=== PATIENT | female | born 1950 | race Caucasian/White ===

== ENCOUNTER → 2017-12-08 09:30 | Outpatient (CLI) | payer MEDICARE, OTHER, SELFPAY ==
--- NOTE | 2017-12-08 | DI.MG.S_ITS ---
BILATERAL DIGITAL SCREENING MAMMOGRAM 3D/2D WITH CAD: 12/08/2017 CLINICAL: Routine screening. Comparison is made to exams dated: 10/15/2016 mammogram, 04/23/2015 mammogram, and 12/21/2013 mammogram - [facility]. The tissue of both breasts is heterogeneously dense. This may lower the sensitivity of mammography. Current study was also evaluated with a Computer Aided Detection (CAD) system. There is architectural distortion in the right breast at 1 o'clock anterior depth. No other significant masses, calcifications, or other findings are seen in either breast. IMPRESSION: INCOMPLETE: NEEDS ADDITIONAL IMAGING EVALUATION The architectural distortion in the right breast is indeterminate. Additional views with possible ultrasound are recommended. This exam was interpreted at Station ID: [id number]. NOTE: For mammograms, a report in lay terms will be sent to the patient. Approximately 15% of breast malignancies will not be visualized mammographically. In the management of a palpable breast mass, a negative mammogram must not discourage biopsy of a clinically suspicious lesion. Electronically Signed By: Warren quintana/yovani:12/08/2017 11:00:32 letter sent: Additional Imaging Needed ACR BI-RADS Category 0: Incomplete [id number]
== END ==
PROVIDERS: PCP Internal Medicine; Visit Provider Internal Medicine
DX: Z12.31 Encounter for screening mammogram for malignant neoplasm of breast (principal)
CPT/HCPCS: 77063; 77067

== ENCOUNTER → 2017-12-26 09:27 | Outpatient (CLI) | payer MEDICARE, OTHER, SELFPAY ==
--- NOTE | 2017-12-26 09:31 | DI.US.S_ITS ---
ULTRASOUND OF RIGHT BREAST AND RIGHT AXILLA: 12/26/2017 CLINICAL: Patient returns today to evaluate an architectural distortion in the right breast. Comparison is made to exams dated: 12/26/2017 mammogram, 12/08/2017 mammogram, 10/15/2016 mammogram, 04/23/2015 mammogram, and 12/21/2013 mammogram - [facility]. Color flow and real-time ultrasound of the right breast and axilla were performed on the areas of interest. There is a 0.9 cm x 0.7 cm x 0.4 cm round mass with an indistinct margin in the right breast at 1 o'clock posterior depth. This round mass is hypoechoic but of mixed echogenicity. Color flow imaging demonstrates that there is no vascularity present. No abnormalities were seen sonographically in the right axilla. IMPRESSION: SUSPICIOUS OF MALIGNANCY - FOLLOW-UP RECOMMENDED The 0.9 cm x 0.7 cm x 0.4 cm round mass in the right breast is at an intermediate suspicion for malignancy. An ultrasound guided biopsy is recommended. The findings were discussed with the patient at the conclusion of the study by Dr. Joyner. Correlation is recommended on post-biopsy mammogram to determine whether this correlates with the architectural distortion see on mammogram. This exam was interpreted at Station ID: [id number]. Electronically Signed By: Bry gregory/:12/26/2017 16:04:03 letter sent: Biopsy Required Ultrasound BI-RADS: 4b Suspicious abnormality - intermediate suspicion of malignancy
--- NOTE | 2017-12-26 09:31 | DI.MG.S_ITS ---
UNILATERAL RIGHT DIGITAL DIAGNOSTIC MAMMOGRAM 3D/2D WITH ADDITIONAL VIEWS: 12/26/2017 CLINICAL: Additional evaluation requested from prior study. Comparison is made to exams dated: 12/08/2017 mammogram, 10/15/2016 mammogram, and 04/23/2015 mammogram - [facility]. The tissue of the right breast is heterogeneously dense. This may lower the sensitivity of mammography. There is irregular low density architectural distortion with an indistinct margin in the right breast at 1 o'clock anterior depth. No other significant masses or calcifications are seen in the breast. IMPRESSION: INCOMPLETE: NEEDS ADDITIONAL IMAGING EVALUATION The irregular low density architectural distortion in the right breast is indeterminate. An ultrasound is recommended. This exam was interpreted at Station ID: [id number]. NOTE: For mammograms, a report in lay terms will be sent to the patient. Approximately 15% of breast malignancies will not be visualized mammographically. In the management of a palpable breast mass, a negative mammogram must not discourage biopsy of a clinically suspicious lesion. Electronically Signed By: Bry gregory/yovani:12/26/2017 10:16:52 letter sent: Need Ultrasound ACR BI-RADS Category 0: Incomplete 3340F
== END ==
PROVIDERS: PCP Internal Medicine; Visit Provider Internal Medicine
DX: N63.12 Unspecified lump in the right breast, upper inner quadrant (principal)
CPT/HCPCS: 76642; 77065; G0279

== ENCOUNTER → 2018-01-06 09:10 | Outpatient (CLI) | payer MEDICARE, OTHER, SELFPAY ==
--- NOTE | 2018-01-06 | DI.MG.S_ITS ---
UNILATERAL RIGHT DIAGNOSTIC MAMMOGRAM POST-NEEDLE BIOPSY: 01/06/2018 CLINICAL: Right breast mass. Post clip placement. Comparison is made to exams dated: 01/06/2018 ultrasound biopsy, 12/26/2017 mammogram, and 12/08/2017 mammogram - [facility]. Current study contains 2 films. The tissue of the right breast is heterogeneously dense. This may lower the sensitivity of mammography. There is a marker clip in the appropriate position in the right breast at 1 o'clock middle depth. This marker clip placement is at biopsy site. IMPRESSION: POST PROCEDURE MAMMOGRAM FOR MARKER PLACEMENT There was a successful marker clip placement in the right breast middle depth. However, the biopsy site is separate from the subtle architectural distortion on mammography, seen on only the CC view. As such, pathology results would be expected to be discordant. Given that the mammographic finding is only seen on the CC projection, stereotactic biopsy may not be feasible. As such, breast MRI is recommended for further evaluation, once pathology results come back. Recommendations were discussed with the patient at the conclusion of the biopsy procedure. This exam was interpreted at Station ID: [id number]. NOTE: For mammograms, a report in lay terms will be sent to the patient. Approximately 15% of breast malignancies will not be visualized mammographically. In the management of a palpable breast mass, a negative mammogram must not discourage biopsy of a clinically suspicious lesion. Electronically Signed By: Chaparro patel/:01/06/2018 10:51:32 ACR BI-RADS Category Post-procedure mammogram for marker placement
--- NOTE | 2018-01-06 | PATH_ITS ---
[facility] Accession Number: [id number] . 01 Material submitted: . RT BREAST MASS . 01 Clinical history: . A: 1:30 10CM FROM NIPPLE . 02 Diagnosis: Needle Core Biopsy, Right Breast, 1:30, 10 cm from the Nipple: Benign breast tissue with hyalinized stroma, negative for atypia and malignancy (see microscopic description). MRV/01/12/2018 . 02 Electronically signed: . Nathan Cristobal MD, Pathologist NPI- [id number] . 01 Gross description: . One specimen is received in formalin labeled [place], Karen and US BX breast perk with vac device, and consists of multiple irregular wilks-yellow fragments of fibrofatty tissue admixed with blood clot, 2.0 x 0.5 x 0.2 cm in aggregate. The specimen is submitted in toto in cassettes A1 and A2. Formalin fixation exceeds requirements. (GERMAIN:[id number]) /[facility] . 02 Microscopic: . Sections are of a needle core biopsy stated to be from a mass in the right breast. The tissue is totally benign. The breast stroma is extremely dense and hyalinized, and there are scattered benign ducts and lobules. The interface between the dense hyalinized stroma and the adjacent adipose tissue is quite distinct and this could well explain a mass on mammography and/or a palpable breast mass. There is no atypia or evidence for malignancy. . 02 Pathologist provided ICD-10: R92.8 . 02 CPT . 161333 Performed at: 01 [facility] [address] [place] [address] [address] [facility], [place], [place] [id number] MD Bry Levin MD Phone: [phone] Performed at: 02 [facility] [place] [address] [place] [id number] MD Sampson Hampton MD Phone: [phone]
--- NOTE | 2018-01-06 09:12 | DI.US.S_ITS ---
ULTRASOUND GUIDED BIOPSY RIGHT BREAST USING VACUUM DEVICE WITH MARKING DEVICE INSERTED AND POST DIGITAL MAMMOGRAPHIC AND ULTRASOUND IMAGIN01/06/2018 CLINICAL: Right breast mass. PATIENT CONSENT: Risks (minor bleeding, infection, vasovagal reaction and repeat procedure), benefits and alternatives were explained to the patient and written informed consent was obtained. Correlation is made to exams dated: 12/26/2017 ultrasound, 12/26/2017 mammogram, and 12/08/2017 mammogram - [facility]. An ultrasound guided biopsy using real-time ultrasound was performed for the concerning 9 mm oval mass located in the right breast at 1 o'clock middle depth 10 cm from the nipple. This was described on the previous mammography and ultrasound reports. The skin was prepped in the usual manner. Local anesthetic was administered to the access site. A small incision was made in the breast. The abnormality was approached from the lateral aspect. A 13 gauge biopsy needle was placed adjacent to the abnormality under ultrasound guidance. Once the needle was documented to be in the correct location, four specimens were obtained using the Mammotome biopsy system. The patient received additional local anesthetic during the procedure. A permanently visible titanium clip cool the biopsy site. A skin adhesive, a skin closure strip, and a sterile dressing were applied to the access site. Post procedure digital mammographic and ultrasound imaging demonstrates the clip to be superomedial to the biopsy site. The specimens were sent to the laboratory for pathological analysis. IMPRESSION: ULTRASOUND GUIDED BIOPSY BENIGN Ultrasound guided biopsy of the 9 mm mass in the right breast at 1 o'clock middle depth 10 cm from the nipple was successful. Pathology indicates benign breast tissue with dense hyalinization. Findings and post biopsy marker location are discordant with the originally questioned mammographic finding. Recommend a bilateral breast MRI with and without contrast for further evaluation. This exam was interpreted at Station ID: [id number]. Chaparro patel,cj/:01/13/2018 16:41:40
== END ==
PROVIDERS: PCP Internal Medicine; Visit Provider Family Medicine
DX: R92.8 Other abnormal and inconclusive findings on diagnostic imaging of breast (principal); N63.0 Unspecified lump in unspecified breast
CPT/HCPCS: 19083; 77065; 88305

== ENCOUNTER → 2018-01-27 08:49 | Outpatient (CLI) | payer MEDICARE, OTHER, SELFPAY ==
[2018-01-27 09:37] LABS: Estimated Glomerular Filt Rate 55.1 mL/min (>60)
== END ==
PROVIDERS: PCP Internal Medicine; Visit Provider Internal Medicine
DX: Z01.812 Encounter for preprocedural laboratory examination (principal)
CPT/HCPCS: 36415; 82565

== ENCOUNTER → 2018-02-01 09:35 | Outpatient (CLI) | payer MEDICARE, OTHER, SELFPAY ==
--- NOTE | 2018-02-01 09:38 | DI.MRI.S_ITS ---
BREAST MRI OF BOTH BREASTS : 02/01/2018 CLINICAL: Right breast clip placement. Comparison is made to exams dated: 01/06/2018 mammogram, 01/06/2018 ultrasound biopsy, and 12/26/2017 [facility]. Informed consent was obtained from the patient. Axial T1, T2, and pre and post contrast T1 images were obtained. Prior mammographic finding is no longer seen right breast. This is consistent with overlapping fibroglandular tissue. There is no abnormal enhancement, masses, or areas of distortion. IMPRESSION: NEGATIVE There is no MRI evidence of malignancy. A 1 year screening mammogram is recommended. This exam was interpreted at Station ID: [id number]. Electronically Signed By: Warren Goodrich M.D. cj/:02/03/2018 07:40:38 Entry: - 02/03/2018 07:40:38 ACR BI-RADS Category 1: Negative [id number]
== END ==
PROVIDERS: PCP Internal Medicine; Visit Provider Internal Medicine
DX: R92.8 Other abnormal and inconclusive findings on diagnostic imaging of breast (principal)
CPT/HCPCS: A9579; C8908

== ENCOUNTER 2018-03-14 15:13 | Emergency (ER) | payer MEDICARE, OTHER, SELFPAY ==
[2018-03-14 15:28] VITALS: BP 139/70; PULSE 56; RESP 14; TEMP 37.2; O2SAT 97; BMI 25.1
[2018-03-14 17:11] VITALS: BP 147/68; PULSE 48; TEMP 37.1; O2SAT 98
--- NOTE | 2018-03-14 18:12 | PC.NURSE ---
pt reports sudden onset dizziness last night at approx 0030 while getting into bed. Reports worse when supine, resolved this AM however reports still feels mildly lightheaded. Denies nausea/vomiting/fever/trauma/cp/soa/dysuria or other sx, amb ind with steady gait.
[2018-03-14 18:37] LABS: Add Manual Diff / Slide Review NO; Basophils Percent Auto 0.6 % (0-2); Eosinophils Percent Auto 2.7 % (2-4); Hematocrit 44.4 % (36-46); Hemoglobin 14.9 g/dL (12.0-16.0); Lymphocytes Percent Auto 33.6 % (25-40); Mean Corpuscular HGB Conc 33.5 % (30-36); Mean Corpuscular Volume 98.5 fL (80-100); Monocytes Percent Auto 7.9 % (3-14); Neutrophils Absolute Auto 4800 /uL (3000-5900); Neutrophils Percent Auto 55.2 % (50-75); Platelet Count 274 X10^3/uL (150-400); Red Blood Cell Count 4.51 X10^6/uL (4.0-5.2); Red Cell Distribution Width 14.5 % (11.6-14.8); White Blood Cell Count 8.7 X10^3/uL (4.5-11.0)
[2018-03-14 18:48] LABS: Alanine Aminotransferase 31 IU/L (9-52); Albumin 4.7 g/dL (3.5-5.0); Albumin Globulin Ratio 1.5 (1.0-2.8); Alkaline Phosphatase 72 U/L (38-126); Aspartate Aminotransferase 29 IU/L (14-36); BUN Creatinine Ratio 17.8 (6-22); Bilirubin Total 0.5 mg/dL (0.2-1.3); Blood Urea Nitrogen 16 mg/dL (7-17); Calcium 9.6 mg/dL (8.4-10.2); Carbon Dioxide 27 mmol/L (22-32); Chloride 105 mmol/L (98-107); Estimated Glomerular Filt Rate > 60.0 mL/min (>60); Globulin 3.1 g/dL (1.7-4.1); Glucose 110 mg/dL (80-110); HEMOLYSIS < 15 (0-50); Potassium 4.3 mmol/L (3.4-5.1); Sodium 142 mmol/L (137-145); Total Protein 7.8 g/dL (6.3-8.2)
[2018-03-14 18:53] LABS: Bacteria Urine None Seen
--- NOTE | 2018-03-14 18:53 | DI.CT.S_ITS ---
PROCEDURE: CT HEAD/BRAIN WO CON INDICATIONS: dizziness, visual change last night TECHNIQUE: Noncontrast 4.5 mm thick angled axial sections acquired from the foramen magnum to the vertex, with coronal and sagittal reformats. For radiation dose reduction, the following was used: automated exposure control, adjustment of mA and/or kV according to patient size. COMPARISON: None. FINDINGS: Image quality: Excellent. CSF spaces: Basal cisterns are patent. No extra-axial fluid collections. The ventricles are symmetric in size and shape. Brain: No intracranial bleeds or masses. There is mild cerebral volume loss for age, with resultant ventricular and sulcal prominence. There are mild periventricular and deep white matter chronic small vessel ischemic changes. There is intracranial internal carotid artery atherosclerosis. Skull and face: Calvarium and visualized facial bones appear intact, without suspicious lesions. Sinuses: Visualized sinuses and mastoids are clear. IMPRESSION: 1. No acute intracranial abnormalities. 2. Cerebral volume loss and chronic microvascular ischemic changes. Dictated by: Sunny Campbell M.D. on 03/14/2018 at 19:41 Approved by: Sunny Campbell M.D. on 03/14/2018 at 19:44
[2018-03-14 18:54] LABS: Appearance Urine UA CLEAR; Bilirubin Urine UA NEGATIVE (NEGATIVE); Color Urine UA YELLOW; Glucose Urine UA NEGATIVE (Normal); Ketones Urine UA NEGATIVE (NEGATIVE); Leukocyte Esterase Urine UA NEGATIVE (NEGATIVE); Nitrite Urine UA Negative (Negative); Occult Blood Urine UA TRACE-LYSED (Negative); Protein Urine UA NEGATIVE (Negative); Urobilinogen Urine UA 0.2 E.U./dL (0.2)
--- NOTE | 2018-03-14 18:54 | ED.DIZZY ---
HPI - Dizziness General Chief Complaint: Dizziness Stated Complaint: DIZZINESS Time Seen by Provider: 03/14/18 18:08 Source: patient Mode of arrival: ambulatory Limitations: no limitations History of Present Illness HPI Narrative: Patient states she had an episode of dizziness last night in the middle of the night after falling asleep in bed while watching TV. She states she awoke and everything appeared wavy. Patient noticed that she had a lightheaded and swirling feeling. Patient states that she fell back asleep, and when she woke up, she felt better, but still had some degree of dizziness. She states she had several episodes of diarrhea this morning and an episode of chills. However, patient states she had a hot dog for lunch and tolerated this well. Patient states that now she is feeling mostly back to normal. MD complaint: dizziness Onset (ago): unknown Timing: awoke with symptoms Description: sense of movement History of similar episodes: No History of trauma: No Severity: mild Relieving factors: sleep (Incomplete resolution.) Exacerbating factors: nothing Associated symptoms: chills and other (Patient denies nausea or vomiting. No chest pain or shortness of breath. No diaphoresis or fever. No syncope.) Related Data Home Medications Medication Instructions Recorded Confirmed cholecalciferol (vitamin D3) 1,000 1,000 unit PO DAILY 02/06/18 03/14/18 unit capsule Allergies Allergy/AdvReac Type Severity Reaction Status Date / Time codeine [CODEINE] AdvReac Unknown Extreme Verified 03/14/18 15:28 nausea oxycodone [OXYCODONE] AdvReac Unknown Extreme Verified 03/14/18 15:28 nausea Review of Systems Review of Systems All systems reviewed & are unremarkable except as noted in HPI and below Constitutional Reports chills ( Single episode.), Denies fever(s), Denies lethargy and Denies weakness Eyes Denies change in vision, Denies eye discharge, Denies irritation and Denies loss of vision ENT Ears, Nose, Mouth, and Throat: Denies change in voice, Denies neck pain and Denies sore throat Cardiovascular Denies chest pain, Denies irregular heart rhythm, Reports lightheadedness, Denies palpitations, Denies dyspnea, Denies dyspnea on exertion and Denies orthopnea Respiratory Denies cough, Denies dyspnea, Denies dyspnea on exertion and Denies wheezing Gastrointestinal Gastrointestinal: Denies abdominal pain, Denies change in bowel habits, Reports diarrhea, Denies nausea and Denies vomiting Genitourinary Denies hematuria, Denies flank pain, Denies urinary incontinence and Denies urinary urgency Musculoskeletal Denies neck pain Integumentary/Breasts Denies pruritus, Denies erythema, Denies rash and Denies wounds Neurologic Denies confusion, Denies loss of vision and Denies weakness Psychiatric Denies anxiety, Denies confusion, Denies depression, Denies homicidal ideation and Denies suicidal ideation Endocrine Denies palpitations Hematologic/Lymphatic Denies easy bruising Allergic/Immunologic Denies wheezing FORMERLY [facility], 1928–1983 Medical History Chicken pox (Resolved ~1949) Herpes (Resolved ~1979) Surgical History Anesthesia (Resolved) Fractures (Resolved ~2016) Family History Father High cholesterol Stroke Mother Stroke Social History Smoking Status: Former smoker Exam Initial Vital Signs Initial Vital Signs: Vital Signs Temperature 99.0 F 03/14/18 15:28 Pulse Rate 56 L 03/14/18 15:28 Respiratory Rate 14 03/14/18 15:28 Blood Pressure 139/70 03/14/18 15:28 Pulse Oximetry 97 03/14/18 15:28 Const General: cooperative and well developed Nutritional Appearance: well nourished Orientation: alert, awake, oriented x3 and not confused [facility] Head: normocephalic and atraumatic Ears: external ears normal and TM's normal bilaterally Nose: external nose normal and No nasal discharge Face and sinus: No dry mucous membranes Eyes General: appearance normal, both eyes and all related structures Eyelids: eyelids normal Conjunctivae: conjunctivae normal Sclera: sclerae normal Pupils: PERRL EOM: EOM intact bilaterally Neck Neck: normal visual inspection, trachea midline, No lymphadenopathy, No midline deformity and No JVD Lymphatic: No lymphedema Chest Chest: normal inspection of the chest Resp Effort & Inspection: normal respiratory effort, able to speak in complete sentences, no respiratory distress and no use of accessory muscles Auscultation: clear to auscultation bilaterally, no rales, no rhonchi and no wheezes Cardio Rate: regular rate Rhythm: regular rhythm Heart Sounds: no click, no gallops, no murmurs and no rubs Pulses: normal peripheral pulses GI Inspection: non-distended Palpation: soft, no hepatosplenomegaly, No guarding, No pulsatile mass and No tender Auscultation: normal bowel sounds Back/Spine/Pelvis Back: No CVA tenderness Cervical Spine: cervical ROM normal and No pain with cervical ROM Thoracic/Lumbar Spine: thoracic and lumbar spine normal to inspection Skin General: no rashes or lesions noted, No jaundice and No petechiae Neuro General: alert, oriented x3, gait normal and no focal motor deficits Speech: speech normal Extrem General: full ROM, no clubbing, cyanosis or edema, no pedal edema and no calf tenderness Psych Appearance: well kempt Mental Status: mental status grossly normal Attitude: cooperative Thought Content: normal and suicidality Judgment: judgment good Course Hospital Course: Patient's symptoms had largely resolved at the time of her Emergency Department visit; however due to her age, she was worked up with labs, UA, EKG and CT scan of the head. These were all unremarkable. I did not find evidence of an emergent condition causing the patient's symptoms. We did discuss the need for follow-up and the usual indications for return. Orders Ordered: ED Orders 03/14/18 18:28 Complete Blood Count AUTO DIFF Stat Comprehensive Metabolic Panel Stat 03/14/18 18:30 Urinalysis and Microscopic Stat 03/14/18 18:53 CT head/brain wo con Stat Vital Signs - 8 hr 03/14/18 15:28 03/14/18 17:11 Temperature 99.0 F 98.8 F Pulse Rate 56 L 48 L Respiratory Rate 14 Blood Pressure 139/70 Blood Pressure [Left Arm] 147/68 H Pulse Oximetry 97 98 MDM - Dizziness Medical Records Attestation: I reviewed the patient's medical records. Lab Data Attestation: I reviewed the patient's lab results. Result diagrams: 03/14/18 18:28 03/14/18 18:28 Lab Results 03/14/18 03/14/18 03/14/18 Range/Units 18:28 18:28 18:28 WBC 8.7 (4.5-11.0) X10^3/uL RBC 4.51 (4.0-5.2) X10^6/uL Hgb 14.9 (12.0-16.0) g/dL Hct 44.4 (36-46) % MCV 98.5 (80-100) fL MCH 33.0 (26-34) PG MCHC 33.5 (30-36) % RDW 14.5 (11.6-14.8) % Plt Count 274 (150-400) X10^3/uL Neut % (Auto) 55.2 (50-75) % Lymph % (Auto) 33.6 (25-40) % Saunders % (Auto) 7.9 (3-14) % Eos % (Auto) 2.7 (2-4) % Baso % (Auto) 0.6 (0-2) % Neut # (Auto) 4800 (0890-8757) /uL Sodium 142 (137-145) mmol/L Potassium 4.3 (3.4-5.1) mmol/L Chloride 105 (98-107) mmol/L Carbon Dioxide 27 (22-32) mmol/L BUN 16 (7-17) mg/dL Creatinine 0.90 (0.52-1.04) mg/dL Estimated GFR > 60.0 (>60) mL/min BUN/Creatinine Ratio 17.8 (6-22) Glucose 110 (80-110) mg/dL Calcium 9.6 (8.4-10.2) mg/dL Total Bilirubin 0.5 (0.2-1.3) mg/dL AST 29 (14-36) IU/L ALT 31 (9-52) IU/L Alkaline Phosphatase 72 (38-126) U/L Total Protein 7.8 (6.3-8.2) g/dL Albumin 4.7 (3.5-5.0) g/dL Globulin 3.1 (1.7-4.1) g/dL Albumin/Globulin Ratio 1.5 (1.0-2.8) TSH 1.96 (0.47-4.68) uIU/mL Urine Color Urine Appearance Urine pH (4.5-8.0) Ur Specific [place] (1.000-1.035) Urine Protein (Negative) Urine Glucose (UA) (Normal) g/dL Urine Ketones (NEGATIVE) Urine Occult Blood (Negative) Urine Nitrate (Negative) Urine Bilirubin (NEGATIVE) Urine Urobilinogen (0.2) E.U./dL Ur Leukocyte Esterase (NEGATIVE) Urine RBC (0-5/HPF) Urine WBC (0-5/HPF) Ur Squamous Epith Cells Urine Bacteria (None) Ur Culture Indicated? Micro UA Comment 03/14/18 Range/Units 18:30 WBC (4.5-11.0) X10^3/uL RBC (4.0-5.2) X10^6/uL Hgb (12.0-16.0) g/dL Hct (36-46) % MCV (80-100) fL MCH (26-34) PG MCHC (30-36) % RDW (11.6-14.8) % Plt Count (150-400) X10^3/uL Neut % (Auto) (50-75) % Lymph % (Auto) (25-40) % Saunders % (Auto) (3-14) % Eos % (Auto) (2-4) % Baso % (Auto) (0-2) % Neut # (Auto) (7946-1894) /uL Sodium (137-145) mmol/L Potassium (3.4-5.1) mmol/L Chloride (98-107) mmol/L Carbon Dioxide (22-32) mmol/L BUN (7-17) mg/dL Creatinine (0.52-1.04) mg/dL Estimated GFR (>60) mL/min BUN/Creatinine Ratio (6-22) Glucose (80-110) mg/dL Calcium (8.4-10.2) mg/dL Total Bilirubin (0.2-1.3) mg/dL AST (14-36) IU/L ALT (9-52) IU/L Alkaline Phosphatase (38-126) U/L Total Protein (6.3-8.2) g/dL Albumin (3.5-5.0) g/dL Globulin (1.7-4.1) g/dL Albumin/Globulin Ratio (1.0-2.8) TSH (0.47-4.68) uIU/mL Urine Color Yellow Urine Appearance Clear Urine pH 5.0 (4.5-8.0) Ur Specific [place] 1.020 (1.000-1.035) Urine Protein Negative (Negative) Urine Glucose (UA) Negative (Normal) g/dL Urine Ketones Negative (NEGATIVE) Urine Occult Blood Trace-lysed (Negative) Urine Nitrate Negative (Negative) Urine Bilirubin Negative (NEGATIVE) Urine Urobilinogen 0.2 (0.2) E.U./dL Ur Leukocyte Esterase Negative (NEGATIVE) Urine RBC 0-1/hpf (0-5/HPF) Urine WBC 0-1/hpf (0-5/HPF) Ur Squamous Epith Cells 0-1 /hpf Urine Bacteria None seen (None) Ur Culture Indicated? Cult not indicated Micro UA Comment Not Reportable ECG Data Attestation: I personally reviewed and interpreted this ECG as follows: Interpretation: Twelve lead EKG performed on March 14, 2018 at 3:32 p.m.. Irregular ventricular rhythm with a rate of 57 beats per minute MS interval 126 millisecond QRS duration 98 milliseconds QTC interval 394 milliseconds Normal axis Interpretation: Sinus bradycardia, no STEMI; borderline EKG MDM Narrative Medical decision making narrative: Patient was worked up with consideration of electrolyte abnormality, cerebral vascular event, cardiac dysrhythmia, viral syndrome, and other possible etiologies in mind. Discharge Plan Departure Patient Disposition: Home Clinical Impression: Dizziness, Diarrhea Discharge Date/Time: 03/14/18 19:33 Interventions: ED Discharge Assessment Last Done: 03/14/18 19:29 Instructions: DI for Diarrhea and Traveler's Diarrhea -- Adult, DI for Dizziness-Nonvertigo Activity Restrictions/Additional Instructions: Your labs and CT scan looked good. There is no evidence of a serious cause of your symptoms at this time. Most likely, the diarrhea and dizziness are related. However, if your diarrhea has completely resolved and your sense of dizziness is not improved in the next few days, you should see your primary care physician for further evaluation. Prescriptions: No Action cholecalciferol (vitamin D3) 1,000 unit capsule 1,000 unit PO DAILY RF: 0 Referrals: Marlee Stinson ARNP [Primary Care Provider] - ( Please follow up with your primary doctor in the next 3 days if you're not feeling better.)
[2018-03-14 19:10] LABS: Culture Indicated Urine Cult Not Indicated; RBC Urine 0-1/HPF (0-5/HPF); Squamous Epithelial Cell Urine 0-1 /HPF; WBC Urine 0-1/HPF (0-5/HPF)
[2018-03-14 19:29] VITALS: BP 121/62; PULSE 55; RESP 16; O2SAT 98
[2018-03-14 20:20] LABS: Thyroid Stimulating Hormone 1.96 uIU/mL (0.47-4.68)
== END 2018-03-14 19:33 | disposition home or self-care (01) ==
PROVIDERS: Emergency Provider Emergency Medicine; PCP Internal Medicine
DX: R42 Dizziness and giddiness (principal); R19.7 Diarrhea, unspecified
CPT/HCPCS: 70450; 80053; 81001; 84443; 85025; 93005; 93010; 99282; 99285

== ENCOUNTER 2018-05-30 12:22 | Emergency (ER) | payer MEDICARE, OTHER, SELFPAY ==
[2018-05-30 12:37] VITALS: BP 156/77; PULSE 51; RESP 16; TEMP 37; O2SAT 98; BMI 27.2
--- NOTE | 2018-05-30 12:47 | PC.NURSE ---
no respiratory distress, clear full speech, breath sound clear to auscultate throughout.
--- NOTE | 2018-05-30 13:02 | ED.ALLEREA ---
HPI - Allergic Reaction <OLIVIER Deluca - Last Filed: 05/30/18 21:44> General Chief complaint: Allergic Reaction Stated complaint: rash from head to toe Time Seen by Provider: 05/30/18 13:02 Source: patient Mode of arrival: ambulatory Limitations: no limitations History of Present Illness HPI narrative: Healthy 67-year-old female that is a former smoker here for complaint of having rash globally that started earlier today. She reports that she recently got back from [place] 1 week ago and she returned from [place] she has had mild flu-like symptoms including fever intermittent headache and generalized body aches. She reports that her symptoms have improved somewhat since it 1st started around 4-5 days ago. She does report that when she was in [place] she was bitten by mosquitos and other insects. She states that the rash has a mild itch. She denies any airway compromise no swelling in her throat. No tongue swelling or lip swelling. She took Benadryl prior to arrival. Positive p.o. intake. She denies any other concerns or complaints. Related Data Home Medications Medication Instructions Recorded Confirmed cholecalciferol (vitamin D3) 1,000 1,000 unit PO DAILY 02/06/18 05/30/18 unit capsule Previous Rx's Medication Instructions Recorded pantoprazole 20 mg PO DAILY #7 tab 05/30/18 Allergies Allergy/AdvReac Type Severity Reaction Status Date / Time codeine [CODEINE] AdvReac Unknown Extreme Verified 05/30/18 12:44 nausea oxycodone [OXYCODONE] AdvReac Unknown Extreme Verified 05/30/18 12:44 nausea Review of Systems <OLIVIER Deluca - Last Filed: 05/30/18 21:44> Constitutional Reports body ache(s), Denies chills, Reports fever(s), Denies lethargy and Denies weakness Comments: Eyes Denies change in vision, Denies eye discharge, Denies irritation and Denies loss of vision ENT Ears, Nose, Mouth, and Throat: Denies change in voice, Denies neck pain and Denies sore throat Cardiovascular Denies chest pain, Denies irregular heart rhythm, Denies lightheadedness, Denies palpitations, Denies dyspnea, Denies dyspnea on exertion and Denies orthopnea Respiratory Denies cough, Denies dyspnea, Denies dyspnea on exertion and Denies wheezing Gastrointestinal Gastrointestinal: Denies abdominal pain, Denies change in bowel habits, Denies diarrhea, Denies nausea and Denies vomiting Genitourinary Denies hematuria, Denies flank pain, Denies urinary incontinence and Denies urinary urgency Musculoskeletal Denies neck pain Integumentary/Breasts Reports rash Neurologic Denies loss of vision and Denies weakness Endocrine Denies palpitations Allergic/Immunologic Denies wheezing Exam <OLIVIER Deluca - Last Filed: 05/30/18 21:44> Initial Vital Signs Initial Vital Signs: Vital Signs Temperature 98.6 F 05/30/18 12:37 Pulse Rate 51 L 05/30/18 12:37 Respiratory Rate 16 05/30/18 12:37 Blood Pressure 156/77 H 05/30/18 12:37 Pulse Oximetry 98 05/30/18 12:37 Const General: cooperative and well developed Nutritional Appearance: well nourished Orientation: alert, awake, oriented x3 and not confused HENDE Mouth: oral mucosae normal, lip normal, tongue normal and oropharynx normal Eyes Conjunctivae: conjunctivae normal Sclera: sclerae normal Pupils: PERRL EOM: EOM intact bilaterally Resp Effort & Inspection: normal respiratory effort, able to speak in complete sentences, no respiratory distress and no use of accessory muscles Auscultation: clear to auscultation bilaterally, no rales, no rhonchi and no wheezes Cardio Rate: regular rate Rhythm: regular rhythm Heart Sounds: no click, no gallops, no murmurs and no rubs Pulses: normal peripheral pulses GI Inspection: non-distended Palpation: soft, no hepatosplenomegaly, No guarding, No pulsatile mass and No tender Auscultation: normal bowel sounds Skin Rashes: rashes noted (Global macular papular rash) Neuro General: alert, oriented x3, gait normal and no focal motor deficits Speech: speech normal <Domonique Sepulveda MD - Last Filed: 06/06/18 00:02> Initial Vital Signs Initial Vital Signs: Vital Signs Temperature 98.6 F 05/30/18 12:37 Pulse Rate 51 L 05/30/18 12:37 Respiratory Rate 16 05/30/18 12:37 Blood Pressure 156/77 H 05/30/18 12:37 Pulse Oximetry 98 05/30/18 12:37 Course <OLIVIER Deluca - Last Filed: 05/30/18 21:44> Orders Ordered: Discontinued Medications Diphenhydramine HCl (Benadryl) 25 mg PO NOW ONE Stop: 05/30/18 13:23 Last Admin: 05/30/18 13:50 Dose: Pantoprazole Sodium (Protonix) 20 mg PO NOW ONE Stop: 05/30/18 13:23 Last Admin: 05/30/18 13:50 Dose: 20 mg Vital Signs - 8 hr 05/30/18 12:37 Temperature 98.6 F Pulse Rate 51 L Respiratory Rate 16 Blood Pressure 156/77 H Pulse Oximetry 98 <Domonique Sepulveda MD - Last Filed: 06/06/18 00:02> Orders Ordered: Discontinued Medications Diphenhydramine HCl (Benadryl) 25 mg PO NOW ONE Stop: 05/30/18 13:23 Last Admin: 05/30/18 13:50 Dose: Pantoprazole Sodium (Protonix) 20 mg PO NOW ONE Stop: 05/30/18 13:23 Last Admin: 05/30/18 13:50 Dose: 20 mg Vital Signs - 8 hr 05/30/18 12:37 Temperature 98.6 F Pulse Rate 51 L Respiratory Rate 16 Blood Pressure 156/77 H Pulse Oximetry 98 MDM - Allergic Reaction <OLIVIER Deluca - Last Filed: 05/30/18 21:44> Lab Data Lab Results 05/30/18 05/30/18 Range/Units 13:40 13:48 Influenza A & B (PCR) Negative (Negative) Is Patient Not given Zika Region Travel Not given Zika Region Resident Not given Zika Clin Signs/Symp Not given Zika Date of Onset Not given Zika Virus IgM Ab Negative MDM Narrative Medical decision making narrative: Global macular papular rash is not present as urticaria suspect viral illness due to patient's other symptoms. Influenza swab was obtained was negative. Due to recent travel to [place] and also her self-reported being bitten by mosquitos frequently while down there as a zika virus antibody titer was obtained and approximately has a one-week turn around. Will treat with Benadryl and short course of Protonix in case is histamine driven. She is encouraged to follow up with primary care provider next week. Plenty of fluids and rest. For any worsening symptoms return to the emergency room. <Domonique Sepulveda MD - Last Filed: 06/06/18 00:02> Lab Data Lab Results 05/30/18 05/30/18 Range/Units 13:40 13:48 Influenza A & B (PCR) Negative (Negative) Is Patient Not given Zika Region Travel Not given Zika Region Resident Not given Zika Clin Signs/Symp Not given Zika Date of Onset Not given Zika Virus IgM Ab Negative Discharge Plan Departure Patient Disposition: Home Clinical Impression: Viral rash Discharge Date/Time: 05/30/18 14:42 Interventions: ED Discharge Assessment Last Done: 05/30/18 14:42 Instructions: DI for Rash Activity Restrictions/Additional Instructions: Rash appears to be more viral in nature than due to allergic reaction. Influenza swab was obtained due to other symptoms of viral illness and was negative. Due to recent travel to [place] and being bitten by mosquitos down there a zika virus antibody panel was obtained and will take several days for to return. Use [id number] Benadryl as needed for itch and rash. Short course of Protonix is prescribed also for antihistamine effect. For any worsening symptoms return emergency room. Plenty of fluids and rest. Follow up with her primary care provider in the next several days for reevaluation Prescriptions: New pantoprazole 20 mg tablet,delayed release (DR/EC) 20 mg PO DAILY Qty: 7 RF: 0 No Action cholecalciferol (vitamin D3) 1,000 unit capsule 1,000 unit PO DAILY RF: 0 Referrals: Marlee Stinson ARNP [Primary Care Provider] -
--- NOTE | 2018-05-30 13:05 | ED_ITS ---
HPI - Allergic Reaction <OLIVIER Deluca - Last Filed: 05/30/18 21:44> General Chief complaint: Allergic Reaction Stated complaint: rash from head to toe Time Seen by Provider: 05/30/18 13:02 Source: patient Mode of arrival: ambulatory Limitations: no limitations History of Present Illness HPI narrative: Healthy 67-year-old female that is a former smoker here for complaint of having rash globally that started earlier today. She reports that she recently got back from [place] 1 week ago and she returned from [place] she has had mild flu-like symptoms including fever intermittent headache and generalized body aches. She reports that her symptoms have improved somewhat since it 1st started around 4-5 days ago. She does report that when she was in [place] she was bitten by mosquitos and other insects. She states that the rash has a mild itch. She denies any airway compromise no swelling in her throat. No tongue swelling or lip swelling. She took Benadryl prior to arrival. Positive p.o. intake. She denies any other concerns or complaints. Related Data Home Medications Medication Instructions Recorded Confirmed cholecalciferol (vitamin D3) 1,000 1,000 unit PO DAILY 02/06/18 05/30/18 unit capsule Previous Rx's Medication Instructions Recorded pantoprazole 20 mg PO DAILY #7 tab 05/30/18 Allergies Allergy/AdvReac Type Severity Reaction Status Date / Time codeine [CODEINE] AdvReac Unknown Extreme Verified 05/30/18 12:44 nausea oxycodone [OXYCODONE] AdvReac Unknown Extreme Verified 05/30/18 12:44 nausea Review of Systems <OLIVIER Deluca - Last Filed: 05/30/18 21:44> Constitutional Reports body ache(s), Denies chills, Reports fever(s), Denies lethargy and Denies weakness Comments: Eyes Denies change in vision, Denies eye discharge, Denies irritation and Denies loss of vision ENT Ears, Nose, Mouth, and Throat: Denies change in voice, Denies neck pain and Denies sore throat Cardiovascular Denies chest pain, Denies irregular heart rhythm, Denies lightheadedness, Denies palpitations, Denies dyspnea, Denies dyspnea on exertion and Denies orthopnea Respiratory Denies cough, Denies dyspnea, Denies dyspnea on exertion and Denies wheezing Gastrointestinal Gastrointestinal: Denies abdominal pain, Denies change in bowel habits, Denies diarrhea, Denies nausea and Denies vomiting Genitourinary Denies hematuria, Denies flank pain, Denies urinary incontinence and Denies urinary urgency Musculoskeletal Denies neck pain Integumentary/Breasts Reports rash Neurologic Denies loss of vision and Denies weakness Endocrine Denies palpitations Allergic/Immunologic Denies wheezing Exam <OLIVIER Deluca - Last Filed: 05/30/18 21:44> Initial Vital Signs Initial Vital Signs: Vital Signs Temperature 98.6 F 05/30/18 12:37 Pulse Rate 51 L 05/30/18 12:37 Respiratory Rate 16 05/30/18 12:37 Blood Pressure 156/77 H 05/30/18 12:37 Pulse Oximetry 98 05/30/18 12:37 Const General: cooperative and well developed Nutritional Appearance: well nourished Orientation: alert, awake, oriented x3 and not confused HENNC Mouth: oral mucosae normal, lip normal, tongue normal and oropharynx normal Eyes Conjunctivae: conjunctivae normal Sclera: sclerae normal Pupils: PERRL EOM: EOM intact bilaterally Resp Effort & Inspection: normal respiratory effort, able to speak in complete sentences, no respiratory distress and no use of accessory muscles Auscultation: clear to auscultation bilaterally, no rales, no rhonchi and no wheezes Cardio Rate: regular rate Rhythm: regular rhythm Heart Sounds: no click, no gallops, no murmurs and no rubs Pulses: normal peripheral pulses GI Inspection: non-distended Palpation: soft, no hepatosplenomegaly, No guarding, No pulsatile mass and No tender Auscultation: normal bowel sounds Skin Rashes: rashes noted (Global macular papular rash) Neuro General: alert, oriented x3, gait normal and no focal motor deficits Speech: speech normal <Domonique Sepulveda MD - Last Filed: 06/06/18 00:02> Initial Vital Signs Initial Vital Signs: Vital Signs Temperature 98.6 F 05/30/18 12:37 Pulse Rate 51 L 05/30/18 12:37 Respiratory Rate 16 05/30/18 12:37 Blood Pressure 156/77 H 05/30/18 12:37 Pulse Oximetry 98 05/30/18 12:37 Course <OLIVIER Deluca - Last Filed: 05/30/18 21:44> Orders Ordered: Discontinued Medications Diphenhydramine HCl (Benadryl) 25 mg PO NOW ONE Stop: 05/30/18 13:23 Last Admin: 05/30/18 13:50 Dose: Pantoprazole Sodium (Protonix) 20 mg PO NOW ONE Stop: 05/30/18 13:23 Last Admin: 05/30/18 13:50 Dose: 20 mg Vital Signs - 8 hr 05/30/18 12:37 Temperature 98.6 F Pulse Rate 51 L Respiratory Rate 16 Blood Pressure 156/77 H Pulse Oximetry 98 <Domonique Sepulveda MD - Last Filed: 06/06/18 00:02> Orders Ordered: Discontinued Medications Diphenhydramine HCl (Benadryl) 25 mg PO NOW ONE Stop: 05/30/18 13:23 Last Admin: 05/30/18 13:50 Dose: Pantoprazole Sodium (Protonix) 20 mg PO NOW ONE Stop: 05/30/18 13:23 Last Admin: 05/30/18 13:50 Dose: 20 mg Vital Signs - 8 hr 05/30/18 12:37 Temperature 98.6 F Pulse Rate 51 L Respiratory Rate 16 Blood Pressure 156/77 H Pulse Oximetry 98 MDM - Allergic Reaction <OLIVIER Deluca - Last Filed: 05/30/18 21:44> Lab Data Lab Results 05/30/18 05/30/18 Range/Units 13:40 13:48 Influenza A & B (PCR) Negative (Negative) Is Patient Not given Zika Region Travel Not given Zika Region Resident Not given Zika Clin Signs/Symp Not given Zika Date of Onset Not given Zika Virus IgM Ab Negative MDM Narrative Medical decision making narrative: Global macular papular rash is not present as urticaria suspect viral illness due to patient's other symptoms. Influenza swab was obtained was negative. Due to recent travel to [place] and also her self -reported being bitten by mosquitos frequently while down there as a zika virus antibody titer was obtained and approximately has a one-week turn around. Will treat with Benadryl and short course of Protonix in case is histamine driven. She is encouraged to follow up with primary care provider next week. Plenty of fluids and rest. For any worsening symptoms return to the emergency room. <Domonique Sepulveda MD - Last Filed: 06/06/18 00:02> Lab Data Lab Results 05/30/18 05/30/18 Range/Units 13:40 13:48 Influenza A & B (PCR) Negative (Negative) Is Patient Not given Zika Region Travel Not given Zika Region Resident Not given Zika Clin Signs/Symp Not given Zika Date of Onset Not given Zika Virus IgM Ab Negative Discharge Plan Departure Patient Disposition: Home Clinical Impression: Viral rash Discharge Date/Time: 05/30/18 14:42 Interventions: ED Discharge Assessment Last Done: 05/30/18 14:42 Instructions: DI for Rash Activity Restrictions/Additional Instructions: Rash appears to be more viral in nature than due to allergic reaction. Influenza swab was obtained due to other symptoms of viral illness and was negative. Due to recent travel to [place] and being bitten by mosquitos down there a zika virus antibody panel was obtained and will take several days for to return. Use [id number] Benadryl as needed for itch and rash. Short course of Protonix is prescribed also for antihistamine effect. For any worsening symptoms return emergency room. Plenty of fluids and rest. Follow up with her primary care provider in the next several days for reevaluation Prescriptions: New pantoprazole 20 mg tablet,delayed release (DR/EC) 20 mg PO DAILY Qty: 7 RF: 0 No Action cholecalciferol (vitamin D3) 1,000 unit capsule 1,000 unit PO DAILY RF: 0 Referrals: Marlee Stinson ARNP [Primary Care Provider] -
[2018-05-30] MEDS: PANTOPRAZOLE 20 MG TABLET PO (13:50)
[2018-05-30 14:01] LABS: Influenza A and B by PCR Rapid Negative (Negative)
--- NOTE | 2018-05-30 14:05 | PC.NURSE ---
Red raised rash;
[2018-06-05 14:00] LABS: Clinical Signs and Symptoms NOT GIVEN; Date of Onset NOT GIVEN; Pregnant NOT GIVEN; Travel in Zika Region NOT GIVEN; Zika Virus AB IgM NEGATIVE
== END 2018-05-30 14:42 | disposition home or self-care (01) ==
PROVIDERS: Emergency Provider Nurse Practitioner Family; PCP Internal Medicine
DX: B09 Unspecified viral infection characterized by skin and mucous membrane lesions (principal)
CPT/HCPCS: 36415; 86794; 87400; 99282; 99283

== ENCOUNTER → 2019-05-24 12:31 | Outpatient (CLI) | payer MEDICARE, OTHER, SELFPAY ==
--- NOTE | 2019-05-24 | DI.MG.S_ITS ---
BILATERAL DIGITAL SCREENING MAMMOGRAM 3D/2D WITH CAD: 05/24/2019 CLINICAL: Routine screening. Comparison is made to exams dated: 12/08/2017 mammogram, 10/15/2016 mammogram, and 04/23/2015 mammogram - [facility]. The tissue of both breasts is heterogeneously dense. This may lower the sensitivity of mammography. Current study was also evaluated with a Computer Aided Detection (CAD) system. No significant masses, calcifications, or other findings are seen in either breast. There has been no significant interval change. IMPRESSION: NEGATIVE There is no mammographic evidence of malignancy. A 1 year screening mammogram is recommended. This exam was interpreted at Station ID: [id number]. NOTE: For mammograms, a report in lay terms will be sent to the patient. Approximately 15% of breast malignancies will not be visualized mammographically. In the management of a palpable breast mass, a negative mammogram must not discourage biopsy of a clinically suspicious lesion. Electronically Signed By: Bry gregory/yovani:05/25/2019 07:17:01 letter sent: Normal Exam ACR BI-RADS Category 1: Negative [id number]
== END ==
PROVIDERS: PCP Internal Medicine; Visit Provider Internal Medicine
DX: Z12.31 Encounter for screening mammogram for malignant neoplasm of breast (principal)
CPT/HCPCS: 77063; 77067

== ENCOUNTER → 2020-09-17 11:35 | Outpatient (CLI) | payer MEDICARE, OTHER, SELFPAY ==
[2020-09-17 13:06] LABS: COVID19 -Nasal RAPID Negative (Negative)
== END ==
PROVIDERS: PCP Internal Medicine; Visit Provider Physician Assistant
DX: Z20.822 Contact with and (suspected) exposure to COVID-19 (principal); Z01.812 Encounter for preprocedural laboratory examination
CPT/HCPCS: 87635; C9803

== ENCOUNTER 2020-09-19 12:05 | Day surgery (SDC) | payer MEDICARE, OTHER, SELFPAY ==
--- NOTE | 2020-09-19 | PATH_ITS ---
[facility] Accession Number: [id number] . 01 Material submitted: . PART A: colon - ASCENDING COLON POLYP 4 MM PART B: colon - SIGMOID COLON POLYP 6MM PART C: rectum - RECTUM POLYP 4MM . 01 Clinical history: . SCREENING COLONOSCOPY . 02 Diagnosis: A. Ascending Colon Polyp, 4 mm, Biopsy: Tubular adenoma. . B. Sigmoid Colon Polyp, 6 mm, Biopsy: Tubular adenoma. . C. Rectal Polyp, 4 mm, Biopsy: Hyperplastic polyp. [facility] 09/23/2020 1139 Local . 02 Electronically signed: . Simone Norris MD, PhD, Pathologist NPI- [id number] . 01 Gross description: . Part A: ASCENDING COLON POLYP 4 MM: Received in formalin is 1 fragment(s) of wilks, soft tissue measuring 0.3 x 0.3 x 0.3 cm submitted entirely in 1 cassette(s) Part B: SIGMOID COLON POLYP 6MM: Received in formalin are 2 fragment(s) of wilks, soft tissue measuring 0.7 x 0.3 x 0.2 cm to 0.3 x 0.3 x 0.2 cm submitted entirely in 1 cassette(s) Part C: RECTUM POLYP 4MM: Received in formalin are 2 fragment(s) of wilks, soft tissue measuring 0.3 x 0.3 x 0.2 cm to 0.3 x 0.2 x 0.1 cm submitted entirely in 1 cassette(s) /QBJ 09/20/2020 0905 Local . 02 Pathologist provided ICD-10: D12.2, D12.5, K62.1 . 02 CPT . 959134, [id number], [id number] Performed at: [address], [place] [id number] MD Bry Levin MD Phone: [phone] Performed at: 02 [facility] [id number] [place] [id number] MD Kalyani Whittaker MD Phone: [phone]
--- NOTE | 2020-09-19 08:05 | PM.HP.1 ---
History of Present Illness History of Present Illness Date Patient Seen: 09/19/20 Chief complaint: SCREENING COLONOSCOPY Narrative: 70 year old female comes in today for consideration of a screening colonoscopy. Last colonoscopy approximately 5 years ago, significant for polyps, 5 year recall. There have been no lower GI symptoms suggesting disease such as change in bowel habits, bleeding, abdominal pain or anemia. There's been no family history of colon cancer or colon polyps. Overall health issues have been stable, including no major cardiac events for at least 6 weeks. 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 Patient History Medical History (Updated 06/14/18 @ 00:00 by ) Chicken pox (~1950) Herpes (~1980) Surgical History (Updated 02/03/18 @ 20:45 by Kiara Carter) Anesthesia Fractures (~2017) Family & Social History Family History (Updated 08/10/17 @ 00:00 by Conversion Provider) Father High cholesterol Stroke Mother Stroke Tobacco & Substance use: Smoking Status Former smoker alcohol intake frequency 0-2 drinks per day Substance Use Type does not use Meds Home Medications and Allergies Home Medications Medication Instructions Recorded Confirmed Type cholecalciferol (vitamin D3) 25 1,000 unit PO DAILY 02/06/18 09/19/20 History mcg (1,000 unit) capsule Allergies Allergy/AdvReac Type Severity Reaction Status Date / Time codeine [CODEINE] AdvReac Unknown Extreme Verified 09/19/20 12:24 nausea oxycodone [OXYCODONE] AdvReac Unknown Extreme Verified 09/19/20 12:24 nausea Review of Systems Review of Systems ROS: Yes All systems reviewed with the patient and are negative except as otherwise documented Exam Narrative Exam Narrative: GENERAL: Alert and oriented, appearing stated age and in no acute distress. HEENT: Head normocephalic/atraumatic. Pupils equal, round, and reactive to light and accomodation. Extraocular muscles intact. Tympanic membranes clear. Nasal mucosa moist, septum midline. Oral mucosa moist, no lesions. Neck soft and supple, no lymphadenopathy. LUNGS: Clear to ausculation bilaterally, no wheezes, rhonchi or rales. CV: Normal S1 and S2 with regular rate and rhythm, no audible murmurs, rubs or gallops. ABDOMEN: Soft, non-tender, non-distended, no organomegaly. Positive bowel sounds. EXTREMITIES: No clubbing, cyanosis, or edema. NEURO: Cranial nerves II through XII grossly intact, no focal deficits. PSYCH: Alert and oriented x 3. SKIN: No concerning lesions. Assessment & Plan Assessment & Plan narrative: 1. History of colon polyps 2. Screening for colon cancer Plan for colonoscopy. The nature and character of the procedure as well as anticipated results were discussed. The possibility of not completing the procedure was also discussed. Possible complications including aspiration pneumonia, bleeding, perforation and reaction to medications either for sedation or preparation and missed lesions were discussed. Questions were answered and proceeding to the colonoscopy was elected. Informed consent signed. I sincerely appreciate the referral allowing me to participate in this patient's care. Please contact me with any questions or concerns.
--- NOTE | 2020-09-19 08:09 | PM.OP.ENDO ---
Operative Date/Time/Diagnoses Date of procedure: 09/19/20 Procedure Notes SCOAP/Timeout: 1:07 p.m. Procedure in detail: ENDOSCOPIST: Isabelle Aguilera MD Sedation RN: Anson Rutherford RN Sedation start time: 1:08 p.m. Sedation end time: 1:32 p.m. PROCEDURE: Colonoscopy with cold biopsy INDICATIONS: 1. History of colon polyps 2. Screening for colon cancer MEDICATION: Levsin 0.125 mg sublingual, incremental doses of Versed and fentanyl until appropriate level sedation achieved. ASA CLASS: 1 CECAL WITHDRAWAL TIME: 10 minutes COMPLICATIONS: None. EXTENT OF PROCEDURE: Cecum. QUALITY OF PREP: Good with portions of liquid stool. PROCEDURE: Prior to insertion of the colonoscope, a digital rectal examination was accomplished with circumferential palpation of the distal rectal mucosa without significant findings being noted. The high-definition colonoscope was passed into the rectum in the usual fashion and advanced over to the cecum without difficulty. The ileocecal valve, appendiceal stoma, and medial wall all could be inspected and no abnormalities were seen. ASCENDING COLON: As the colonoscope was withdrawn, care was taken to expose and inspect the haustral folds and a 4 mm polyp was seen and removed with cold biopsy forceps. HEPATIC FLEXURE: Normal no polyps, diverticula or other abnormalities. TRANSVERSE COLON: Normal, no polyps, diverticula or other abnormalities. DESCENDING COLON: Minor diverticulosis, otherwise, normal, no polyps or other abnormalities. SIGMOID COLON: A 6 mm polyp was seen and removed with cold biopsy forceps. Otherwise, minor diverticulosis and no other abnormalities. RECTUM: A 4 mm polyp was seen and removed with cold biopsy forceps. J maneuver was produced. There was no significant perianal disease. The J maneuver was broken. The remainder of the rectum was inspected and there was no external hemorrhoid disease. The scope was withdrawn. IMPRESSION: 1. Ascending polyp x1, 4 mm, removed with cold biopsy forceps 2. Sigmoid polyp x1, 6 mm, removed with cold biopsy forceps 3. Rectal polyp x1, 4 mm, removed with cold biopsy forceps. PLAN: 1. Follow-up in clinic status post pathology results. The possibility of a missed lesion including a malignancy has been discussed with the patient previously. Potential alarm symptoms have been discussed and should be reported immediately.
[2020-09-19 12:29] VITALS: BP 118/74; PULSE 79; RESP 15; TEMP 37.1; O2SAT 96; BMI 25.8
[2020-09-19] MEDS: HYOSCYAMINE 0.125 MG TABLET PO (12:52)
[2020-09-19] MEDS: LACTATED RINGERS 1,000 ML 200 ML IV (12:52)
[2020-09-19] MEDS: ONDANSETRON 4 MG/2 ML INJ IV (13:05)
[2020-09-19] MEDS: fentaNYL 250 MCG/5 ML INJ IV (13:18)
[2020-09-19] MEDS: MIDAZOLAM 5 MG/5 ML VIAL IV (13:20)
[2020-09-19 13:39] VITALS: BP 128/62; PULSE 75; RESP 16; TEMP 36.6; O2SAT 92
[2020-09-19 13:44] VITALS: BP 130/65; PULSE 70; RESP 12; O2SAT 92
[2020-09-19 13:49] VITALS: BP 126/72; PULSE 74; RESP 12; O2SAT 94
[2020-09-19 13:55] VITALS: BP 121/63; PULSE 66; RESP 16; TEMP 36.2; O2SAT 98
--- NOTE | 2020-09-19 15:04 | SUR.PHASEII ---
1355 To [facility]PD, MEDICAL STAFF MANAGER reported that patient was ready to go home. Instructions reviewed and clothes given. Then patient rested on bed, waiting for ride.
== END 2020-09-19 14:35 | disposition home or self-care (01) ==
PROVIDERS: PCP Internal Medicine; Referring Provider Student in an Organized Health Care Education/Training Program; Visit Provider Student in an Organized Health Care Education/Training Program
PROC: 0DJD8ZZ Inspection of Lower Intestinal Tract, Via Natural or Artificial Opening Endoscopic (ICD-10-PCS; CPT 45378; principal; 2020-09-19 13:00)
DX: Z12.11 Encounter for screening for malignant neoplasm of colon (principal); Z86.010 Personal history of colon polyps; K57.30 Diverticulosis of large intestine without perforation or abscess without bleeding; D12.2 Benign neoplasm of ascending colon; D12.5 Benign neoplasm of sigmoid colon; K62.1 Rectal polyp
CPT/HCPCS: 45380; J2250; J2405; J3010

== ENCOUNTER → 2020-10-01 10:58 | Outpatient (CLI) | payer MEDICARE, OTHER, SELFPAY ==
--- NOTE | 2020-10-01 11:00 | DI.MG.S_ITS ---
BILATERAL DIGITAL SCREENING MAMMOGRAM 3D/2D WITH CAD: 10/01/2020 CLINICAL: Routine screening. Comparison is made to exams dated: 05/24/2019 mammogram, 12/08/2017 mammogram, and 10/15/2016 mammogram - [facility]. The tissue of both breasts is heterogeneously dense. This may lower the sensitivity of mammography. Current study was also evaluated with a Computer Aided Detection (CAD) system. No significant masses, calcifications, or other findings are seen in either breast. There has been no significant interval change. IMPRESSION: NEGATIVE There is no mammographic evidence of malignancy. A 1 year screening mammogram is recommended. This exam was interpreted at Station ID: [id number]. NOTE: For mammograms, a report in lay terms will be sent to the patient. Approximately 15% of breast malignancies will not be visualized mammographically. In the management of a palpable breast mass, a negative mammogram must not discourage biopsy of a clinically suspicious lesion. Electronically Signed By: Jeffery Sheridan M.D., jr/yovani:10/01/2020 14:50:13 letter sent: Normal Exam ACR BI-RADS Category 1: Negative 3341F
== END ==
PROVIDERS: PCP Internal Medicine; Referring Provider Otolaryngology; Visit Provider Internal Medicine
DX: Z12.31 Encounter for screening mammogram for malignant neoplasm of breast (principal); Z01.810 Encounter for preprocedural cardiovascular examination
CPT/HCPCS: 77063; 77067; 93005; 93010

== ENCOUNTER 2021-02-19 10:36 | Emergency (ER) | payer MEDICARE, OTHER, SELFPAY ==
[2021-02-19 10:53] VITALS: BP 151/68; PULSE 56; RESP 14; TEMP 36.6; O2SAT 97; BMI 25.8
[2021-02-19 11:17] LABS: COVID19 -Nasal RAPID Negative (Negative)
--- NOTE | 2021-02-19 11:46 | ED_ITS ---
HPI - Recheck/Abnormal Lab/Rx General Chief Complaint: Recheck/Abnormal Lab/Rx Stated Complaint: exposure to Covid, would like to be tested Time Seen by Provider: 02/19/21 11:10 Source: patient Mode of arrival: Ambulatory Limitations: no limitations History of Present Illness HPI narrative: Patient is a 70-year-old female. Is greater than 2 weeks after her 2nd Moderna COVID vaccine. Five days ago she was at a baby shower where in individual eventually became positive for COVID. She has no symptoms. Related Data Home Medications Medication Instructions Recorded Confirmed cholecalciferol (vitamin D3) 25 1,000 unit PO DAILY 02/06/18 09/19/20 mcg (1,000 unit) capsule Allergies Allergy/AdvReac Type Severity Reaction Status Date / Time codeine [CODEINE] AdvReac Unknown Extreme Verified 02/19/21 10:53 nausea oxycodone [OXYCODONE] AdvReac Unknown Extreme Verified 02/19/21 10:53 nausea Review of Systems Constitutional Comments: No headache Respiratory Comments: No shortness of breath Gastrointestinal Comments: No GI changes Integumentary/Breasts Comments: No rashes Hematologic/Lymphatic On Anticoagulants: No Patient History Medical History Chicken pox (~1950) Herpes (~1980) Surgical History (Updated 02/03/18 @ 20:45 by Kiara Carter) Anesthesia Fractures (~2017) Family History (Updated 08/10/17 @ 00:00 by Conversion Provider) Father High cholesterol Stroke Mother Stroke Social History household members: family and other Smoking Status: Former smoker Smoking Status: Former smoker alcohol intake frequency: 0-2 drinks per day Substance Use Type: does not use Exam Initial Vital Signs Initial Vital Signs: Vital Signs Temperature 97.9 F 02/19/21 10:53 Pulse Rate 56 L 02/19/21 10:53 Respiratory Rate 14 02/19/21 10:53 Blood Pressure 151/68 H 02/19/21 10:53 Pulse Oximetry 97 02/19/21 10:53 Resp Auscultation: clear to auscultation bilaterally Cardio Rate: regular rate Skin General: no rashes or lesions noted Neuro General: patient alert and patient awake Course Orders Ordered: ED Orders 02/19/21 10:57 COVID19 -Nasal swab/Pre-Proc Stat Vital Signs Vital signs: Vital Signs - 8 hr 02/19/21 10:53 Temperature 97.9 F Pulse Rate 56 L Respiratory Rate 14 Blood Pressure 151/68 H Pulse Oximetry 97 MDM - Recheck/Abnormal Lab/Rx Lab Data Labs: Lab Results 02/19/21 Range/Units 10:57 SARS-CoV-2 (PCR) Negative (Negative) MDM Narrative Medical decision making narrative: COVID test negative, patient has no symptoms Discharge Plan Departure Patient Disposition: Home Clinical Impression: Encounter for laboratory testing for COVID-19 virus Activity Restrictions/Additional Instructions: Your COVID-19 test today was negative. Contact your primary doctor for follow- up if you develop any symptoms. Prescriptions: No Action cholecalciferol (vitamin D3) 1,000 unit capsule 1,000 unit PO DAILY RF: 0 Referrals: Marlee Stinson ARNP [Primary Care Provider] -
== END 2021-02-19 11:54 | disposition home or self-care (01) ==
PROVIDERS: Emergency Provider Emergency Medicine; PCP Internal Medicine
DX: Z20.822 Contact with and (suspected) exposure to COVID-19 (principal)
CPT/HCPCS: 87635; 99281; C9803

== ENCOUNTER → 2021-07-07 14:04 | Outpatient (CLI) | payer MEDICARE, OTHER, SELFPAY ==
[2021-07-07 15:40] LABS: COVID19 -Nasal RAPID Negative (Negative)
== END ==
PROVIDERS: PCP Internal Medicine; Visit Provider Physician Assistant
DX: Z20.822 Contact with and (suspected) exposure to COVID-19 (principal)
CPT/HCPCS: 87635

== ENCOUNTER → 2021-08-19 07:51 | Outpatient (CLI) | payer MEDICARE, OTHER, SELFPAY ==
--- NOTE | 2021-08-19 | DI.ECHO.S_ITS ---
[facility]---------+ [facility] +---------+ : : [address] : [address] : : : : [id number] : : : : Phone: [phone]+ Echocardiogram Report + + :Name: RASHAWN NAILS Study Date: 08/19/2021 Height: 70 in : :[facility] ReadingLocation: Weight: 185 lb : : Gender: Female BSA: 2.0 m2 : :: 1950 Age: 71 yrs BP: 144/69 mmHg: :Reason For Study: ATRIAL FIBRILLATION : :Ordering Physician: LEXII, : :JUS Performed By: Gale Donaldson : :Referring: JUS SHULTZ : + + Interpretation Summary 1) Normal left ventricular thickness, size, wall motion, and systolic function (EF 55-60%). 2) Normal right ventricular size and function. 3) The left atrium is moderately dilated. 4) No significant valvular abnormalities. 5) No prior Echo available for comparison. Procedure: A two-dimensional transthoracic echocardiogram with color flow and Doppler was performed. The study quality was technically adequate. There is no prior echocardiogram noted for this patient. The patient was in sinus bradycardia with heart rates between 46-53 bpm during the exam. Left Ventricle: The left ventricle is normal in size and wall thickness. The ejection fraction is estimated to be 55-60%. Left ventricular systolic function appears normal without focal wall motion abnormalities. Diastolic parameters suggest a relaxation abnormality of the left ventricle, consistent with probable normal filling pressures. Right Ventricle: The right ventricle is normal in size and function. Atria: The left atrium is moderately dilated. Right atrial size is normal. There is no Doppler evidence for an interatrial shunt. Mitral Valve: The mitral valve is normal in structure and function. There is mild mitral regurgitation. Aortic Valve: The aortic valve is not well visualized. The aortic valve opens well. There is no aortic valve stenosis. There is trace aortic regurgitation. Tricuspid Valve: The tricuspid valve is normal in structure and function. There is a trace or physiologic amount of tricuspid regurgitation. Pulmonary artery pressures cannot be estimated because of the lack of a measurable TR jet velocity but the IVC suggests a CVP of around 3 mmHg. Pulmonic Valve: The pulmonic valve is not well visualized. There is a trace or physiologic amount of pulmonic regurgitation. Great Vessels: The aortic root is normal size. The ascending aorta is at the upper limits of normal in size. The IVC is of normal diameter and collapses greater than 50% with a sniff. This suggests a low right atrial pressure of 3 mm Hg. Pericardium/ Pleura There is no pericardial effusion. There is no pleural effusion. MMode/2D Measurements & Calculations LVIDd: 4.3 cm LVOT diam: 2.1 cm LVIDs: 2.7 cm Ao root diam: 3.0 cm FS: 38.6 % asc Aorta Diam: 3.7 cm IVSd: 0.95 cm Ao Arch Diam (Prox Trans): 3.4 cm LVPWd: 0.82 cm LV bates. diameter/BSA (cm/m^2): 2.1 LV sys. diameter/BSA (cm/m^2): 1.3 LA A2 area: 22.0 cm2 RA long axis: 4.3 cm LA A4 area: 21.8 cm2 RA area: 13.8 cm2 LA length (vol): 5.4 cm RA vol: 37.6 ml LA vol: 75.3 ml RA : 18.6 ml/m2 LA vol index: 37.3 ml/m2 IVC diam: 1.0 cm RVD1 (basal): 3.8 cm TAPSE: 2.4 cm Doppler Measurements & Calculations Ao V2 max: 138.2 cm/sec LVOT Max Brayan: 122.9 cm/sec Ao V2 mean: 97.6 cm/sec LV V1 max P.0 mmHg Ao max P.6 mmHg LV V1 VTI: 29.8 cm Ao mean P.2 mmHg MARTI(I,D): 3.3 cm2 Ao V2 VTI: 31.2 cm MARTI(V,D): 3.0 cm2 sev ratio: 0.96 MARTI indexed to BSA (cm^2/m^2): 1.6 MV E max brayan: 87.5 cm/sec PA V2 max: 87.4 cm/sec MV A max brayan: 47.7 cm/sec PA V2 mean: 57.9 cm/sec MV E/A: 1.8 PA mean P.6 mmHg Med Peak E' Brayan: 6.8 cm/sec PA pr(Accel): 24.2 mmHg E/E' med: 12.9 Lat Peak E' Brayan: 7.7 cm/sec E/E' lat: 11.3 E/e' average: 12.1 MV dec time: 0.23 sec SV(LVOT): 102.0 ml Reading Physician:09:41 AM
== END ==
PROVIDERS: PCP Internal Medicine; Referring Provider Internal Medicine; Visit Provider Internal Medicine
DX: I34.0 Nonrheumatic mitral (valve) insufficiency (principal); Z78.0 Asymptomatic menopausal state; I48.91 Unspecified atrial fibrillation; Z82.62 Family history of osteoporosis; Z87.891 Personal history of nicotine dependence
CPT/HCPCS: 77080; 93306

== ENCOUNTER → 2021-11-24 11:07 | Outpatient (CLI) | payer MEDICARE, OTHER, SELFPAY ==
--- NOTE | 2021-11-24 | DI.MG.S_ITS ---
BILATERAL DIGITAL SCREENING MAMMOGRAM 3D/2D WITH CAD: 11/24/2021 CLINICAL: Routine screening. Comparison is made to exams dated: 10/01/2020 mammogram, 05/24/2019 mammogram, 02/01/2018 breast MRI, and 12/26/2017 mammogram - [facility]. The tissue of both breasts is heterogeneously dense. This may lower the sensitivity of mammography. Current study was also evaluated with a Computer Aided Detection (CAD) system. There are grouped calcifications in the right breast at 1 o'clock middle depth. No other significant masses, calcifications, or other findings are seen in either breast. IMPRESSION: INCOMPLETE: NEEDS ADDITIONAL IMAGING EVALUATION The grouped calcifications in the right breast are indeterminate. Spot magnification views are recommended. This exam was interpreted at Station ID: [id number]. NOTE: For mammograms, a report in lay terms will be sent to the patient. Approximately 15% of breast malignancies will not be visualized mammographically. In the management of a palpable breast mass, a negative mammogram must not discourage biopsy of a clinically suspicious lesion. Electronically Signed By: Bell acosta/yovani:11/24/2021 12:55:04 letter sent: Additional Imaging Needed ACR BI-RADS Category 0: Incomplete 3340F
== END ==
PROVIDERS: PCP Internal Medicine; Referring Provider Internal Medicine; Visit Provider Internal Medicine
DX: Z12.31 Encounter for screening mammogram for malignant neoplasm of breast (principal)
CPT/HCPCS: 77063; 77067

== ENCOUNTER → 2021-12-10 13:26 | Outpatient (CLI) | payer MEDICARE, OTHER, SELFPAY ==
--- NOTE | 2021-12-10 | DI.MG.S_ITS ---
UNILATERAL RIGHT DIGITAL DIAGNOSTIC MAMMOGRAM 3D/2D WITH ADDITIONAL VIEWS: 12/10/2021 CLINICAL: Additional evaluation requested from prior study. Comparison is made to exams dated: 11/24/2021 mammogram, 10/01/2020 mammogram, and 05/24/2019 mammogram - [facility]. The tissue of right breast is heterogeneously dense. This may lower the sensitivity of mammography. There are grouped heterogeneous punctate calcifications in the right breast at 1 o'clock middle depth. These are not significantly changed. No other significant masses or calcifications are seen in the breast. IMPRESSION: PROBABLY BENIGN The grouped heterogeneous punctate calcifications in the right breast are probably benign. A follow-up mammogram in 6 months is recommended to demonstrate continued stability. Findings and recommendations were conveyed to the patient during today's evaluation. This exam was interpreted at Station ID: [id number]. NOTE: For mammograms, a report in lay terms will be sent to the patient. Approximately 15% of breast malignancies will not be visualized mammographically. In the management of a palpable breast mass, a negative mammogram must not discourage biopsy of a clinically suspicious lesion. Electronically Signed By: Sarbjit Gutierrez M.D. aty/:12/10/2021 14:48:03 letter sent: Followup Recommended ACR BI-RADS Category 3: Probably benign [id number]
== END ==
PROVIDERS: PCP Internal Medicine; Referring Provider Internal Medicine; Visit Provider Internal Medicine
DX: R92.8 Other abnormal and inconclusive findings on diagnostic imaging of breast (principal)
CPT/HCPCS: 77065; G0279

== ENCOUNTER → 2022-06-04 09:58 | Outpatient (CLI) | payer MEDICARE, OTHER, SELFPAY ==
[2022-06-04 10:55] LABS: Cholesterol 238 mg/dL (140-199); HDL Cholesterol 61 mg/dL (40-60); LDL Cholesterol Calculated 161 mg/dL (<100); Triglycerides 79 mg/dL (35-150)
== END ==
PROVIDERS: PCP Internal Medicine; Referring Provider Nurse Practitioner Acute Care; Visit Provider Nurse Practitioner Acute Care
DX: E78.5 Hyperlipidemia, unspecified (principal)
CPT/HCPCS: 36415; 80061

== ENCOUNTER → 2022-10-15 11:30 | Outpatient (CLI) | payer MEDICARE, OTHER, SELFPAY ==
--- NOTE | 2022-10-15 | DI.MG.S_ITS ---
BILATERAL DIGITAL DIAGNOSTIC MAMMOGRAM 3D/2D: 10/15/2022 CLINICAL: Short term follow up of the right breast, due for bilateral imaging. Comparison is made to exams dated: 12/10/2021 mammogram, 11/24/2021 mammogram, 10/01/2020 mammogram, and 05/24/2019 mammogram - [facility]. Both breasts are heterogeneously dense, which may obscure small masses (category c / 51-75% glandular tissue). There is a biopsy clip in the right breast. There are grouped heterogeneous punctate calcifications in the right breast at 1 o'clock middle depth. These are not significantly changed. No other significant masses, calcifications, or other findings are seen in either breast. IMPRESSION: PROBABLY BENIGN The grouped heterogeneous punctate calcifications in the right breast are probably benign. A follow-up right mammogram in 6 months is recommended to demonstrate stability. This exam was interpreted at Station ID: [id number]. NOTE: For mammograms, a report in lay terms will be sent to the patient. Approximately 15% of breast malignancies will not be visualized mammographically. In the management of a palpable breast mass, a negative mammogram must not discourage biopsy of a clinically suspicious lesion. Electronically Signed By: Vincenzo smith/yovani:10/15/2022 11:59:34 letter sent: Followup Recommended ACR BI-RADS Category 3: Probably benign [id number]
== END ==
PROVIDERS: PCP Internal Medicine; Referring Provider Internal Medicine; Visit Provider Internal Medicine
DX: R92.8 Other abnormal and inconclusive findings on diagnostic imaging of breast (principal); R92.1 Mammographic calcification found on diagnostic imaging of breast
CPT/HCPCS: 77066; G0279

== ENCOUNTER → 2023-08-09 13:27 | Outpatient (CLI) | payer MEDICARE, OTHER, SELFPAY ==
--- NOTE | 2023-08-09 | DI.MG.S_ITS ---
BILATERAL DIGITAL DIAGNOSTIC MAMMOGRAM 3D/2D SHORT-TERM FOLLOW-UP: 08/09/2023 CLINICAL: Short term follow up of the right breast, due for bilateral imaging. Comparison is made to exams dated: 10/15/2022 mammogram, 12/10/2021 mammogram, 11/24/2021 mammogram, 10/01/2020 mammogram, and 05/24/2019 mammogram - [facility]. Both breasts are heterogeneously dense, which may obscure small masses (category c / 51-75% glandular tissue). There is a biopsy clip in the right breast. There are grouped punctate and coarse heterogenous calcifications in the right breast at 1 o'clock middle depth, stable since 12/10/2021. No other significant masses, calcifications, or other findings are seen in either breast. IMPRESSION: PROBABLY BENIGN Right breast grouped punctate and coarse heterogeneous calcifications at 1 o'clock posterior depth, stable since 12/10/2021. A follow-up mammogram in 12 months is recommended to demonstrate over 2 year stability. Patient will be due for bilateral mammogram at that time. Findings and recommendations were conveyed to the patient during today's evaluation. This exam was interpreted at Station ID: [id number]. NOTE: For mammograms, a report in lay terms will be sent to the patient. Approximately 15% of breast malignancies will not be visualized mammographically. In the management of a palpable breast mass, a negative mammogram must not discourage biopsy of a clinically suspicious lesion. Electronically Signed By: Yumi Sahni M.D., PH.D eb/:08/09/2023 14:27:51 letter sent: Followup Recommended ACR BI-RADS Category 3: Probably benign [id number]
== END ==
LOC: MAMMO 13:28
PROVIDERS: PCP Internal Medicine; Referring Provider Internal Medicine; Visit Provider Internal Medicine
DX: R92.8 Other abnormal and inconclusive findings on diagnostic imaging of breast (principal); R92.1 Mammographic calcification found on diagnostic imaging of breast; R92.333 Mammographic heterogeneous density, bilateral breasts
CPT/HCPCS: 77066; G0279

== ENCOUNTER → 2024-01-03 11:19 | Outpatient (CLI) | payer MEDICARE, OTHER, SELFPAY ==
[2024-01-03 12:16] LABS: Estimated Glomerular Filt Rate > 60 mL/min (>60)
== END ==
PROVIDERS: PCP Internal Medicine; Referring Provider Radiology Diagnostic Radiology; Visit Provider Radiology Diagnostic Radiology
DX: T78.2XXA Anaphylactic shock, unspecified, initial encounter (principal)
CPT/HCPCS: 36415; 82565

== ENCOUNTER → 2024-01-05 09:00 | Outpatient (CLI) | payer MEDICARE, OTHER, SELFPAY ==
--- NOTE | 2024-01-05 09:02 | DI.CT.S_ITS ---
PROCEDURE: CT ABDOMEN PELVIS W CON INDICATIONS: Generalized abdominal pain TECHNIQUE: After the administration of intravenous contrast, axial sections acquired from the lung bases to the pubic symphysis. Coronal and sagittal reformats were performed. For radiation dose reduction, the following was used: automated exposure control, adjustment of mA and/or kV according to patient size. COMPARISON: None. FINDINGS: Image quality: Diagnostic. Lower Chest: No significant findings. ABDOMEN: Liver: No solid mass. Gallbladder: No radiopaque gallstones or wall thickening. Biliary ducts: No biliary dilation. Pancreas: No ductal dilation. Spleen: Size is within normal limits. Adrenal Glands: No adrenal nodules. Kidneys and Ureters: No hydronephrosis. No solid mass. No complex renal cystic lesion which requires follow up. Stomach and Bowel: Normal colonic caliber, without significant wall thickening. Colonic diverticulosis without evidence of diverticulitis. Normal appendix. Peritoneum: No abnormal intraperitoneal fluid. No free air. Ventral Wall: No significant ventral hernia. Abdominal Nodes: No retroperitoneal or mesenteric adenopathy by size criteria. Vessels: Aorta and inferior vena cava are normal in size. PELVIS: Pelvic Organs: Atrophic ovaries without mass. Bladder: No bladder wall thickening, accounting for underdistention. Pelvic Nodes: No enlarged lymph nodes. Miscellaneous: No inguinal hernias are seen. Bones: No aggressive osseous abnormality. Degenerative disc disease of the lumbar spine. Disc herniation at L5-S1. Posing endplate sclerosis at L5-S1. IMPRESSION: No findings to explain the patient's generalized abdominal pain and bloating. Colonic diverticulosis without evidence of diverticulitis. Symmetric and atrophic ovaries without mass. No ascites. Dictated by: Leo Kim M.D. on 01/05/2024 at 13:56 Approved by: Leo Kim M.D. on 01/05/2024 at 13:59
== END ==
PROVIDERS: PCP Internal Medicine; Referring Provider Internal Medicine; Visit Provider Internal Medicine
DX: R10.84 Generalized abdominal pain (principal); K57.90 Diverticulosis of intestine, part unspecified, without perforation or abscess without bleeding
CPT/HCPCS: 74177; Q9967

== ENCOUNTER → 2024-04-11 16:08 | Outpatient (CLI) | payer MEDICARE, OTHER, SELFPAY ==
--- NOTE | 2024-04-11 16:11 | DI.RAD.S_ITS ---
PROCEDURE: XR HIP W PEL IF DONE RT 2V INDICATIONS: Sacrococcygeal disorders, not elsewhere classified TECHNIQUE: AP pelvis with lateral view(s) of the right hip(s). COMPARISON: None. FINDINGS: Bones: No fractures or dislocations. Pelvic ring appears intact. No suspicious bony lesions. Moderate bilateral degenerative hip joint space narrowing with small periarticular osteophytes. No erosions. Soft tissues: The visualized bowel gas pattern is normal. No suspicious soft tissue calcifications. IMPRESSION: Moderate bilateral hip arthritic change. Dictated by: Aviva Lala M.D. on 04/11/2024 at 21:16 Approved by: Aviva Lala M.D. on 04/11/2024 at 21:17
--- NOTE | 2024-04-11 16:11 | DI.RAD.S_ITS ---
PROCEDURE: XR LUMBAR SPINE 2-3V INDICATIONS: Sacrococcygeal disorders, not elsewhere classified TECHNIQUE: 3 views of the lumbar spine were acquired. COMPARISON: None. FINDINGS: Bones: 5 [id number] vertebrae are present. There is trace retrolisthesis of 1 on L2, L2 on L3, L3 on L4 and trace anterolisthesis of L4-L5. Multilevel degenerative disc space narrowing most severe at L5-S1. Severe foraminal narrowing L5-S1, moderate L4-5. No vertebral body compression fractures. No suspicious bony lesions. Soft tissues: Overlying bowel gas pattern is normal. No suspicious soft tissue calcifications. IMPRESSION: Degenerative changes most severe at L5-S1. Dictated by: Aviva Lala M.D. on 04/11/2024 at 21:17 Approved by: Aviva Lala M.D. on 04/11/2024 at 21:17
== END ==
LOC: RAD 16:09
PROVIDERS: PCP Internal Medicine; Referring Provider Internal Medicine; Visit Provider Internal Medicine
DX: M47.27 Other spondylosis with radiculopathy, lumbosacral region (principal); M54.31 Sciatica, right side; M53.3 Sacrococcygeal disorders, not elsewhere classified
CPT/HCPCS: 72100; 73502

== ENCOUNTER → 2024-04-16 13:20 | Outpatient (CLI) | payer MEDICARE, OTHER, SELFPAY ==
--- NOTE | 2024-04-16 13:21 | DI.US.S_ITS ---
PROCEDURE: US SOFT TISSUE HEAD AND NECK INDICATIONS: Right lateral neck fullness TECHNIQUE: Real-time scanning was performed of the neck region of interest, with image documentation. COMPARISON: None. FINDINGS: No sonographic abnormality in the area of clinical concern in the right lateral neck. IMPRESSION: No sonographic abnormality in the area of clinical concern. Approved by: Yumi Sahni M.D.,Ph.D. on 04/17/2024 at 0:26
--- NOTE | 2024-04-16 13:22 | DI.MRI.S_ITS ---
PROCEDURE: MR LUMBAR SPINE WO CON INDICATIONS: RADIC RT LEG / NECK MASS TECHNIQUE: Noncontrast sagittal T1 spin echo and T2 fast echo, sagittal STIR, and T2 fast spin echo through the lumbar spine. In cases with scoliosis, additional coronal T2 fast spin echo may be performed. COMPARISON: [facility], CR, XR LUMBAR SPINE 2-3V, 04/11/2024, 16:15. FINDINGS: Image quality: Excellent. Alignment and Curvature: There is 7 mm anterolisthesis of L4 on L5. Bone Marrow: There is no marrow edema. No acute vertebral body compression fractures. Likely intraosseous hemangioma involving T12 vertebral body is seen. Spinal Cord: Conus medullaris terminates at the L1 level. Visualized cord demonstrates normal signal and size. Paraspinous Soft Tissues: No paravertebral masses. T12-L1: Normal appearance. L1-L2: There is disc desiccation. Bilateral facet arthrosis is seen. No significant disc bulge, canal stenosis or neural foraminal narrowing. L2-L3: There is disc desiccation. No significant disc bulge is seen. Bilateral facet arthrosis is noted. No significant central canal stenosis or neural foraminal narrowing. L3-L4: Loss of disc height and disc desiccation. Broad-based disc bulge and bilateral facet arthrosis with hypertrophy of ligamentum flavum. Mild central canal stenosis and [id number] bilateral neural foraminal narrowing is seen. L4-L5: Loss of disc height and disc desiccation is seen. Broad-based disc bulge and bilateral facet arthrosis with hypertrophy of ligamentum flavum causing [id number] central canal stenosis and moderate to severe left-sided neural foraminal narrowing. Moderate right-sided neural foraminal narrowing is also seen. Bulging disc likely contacting bilateral L4 nerve roots. L5-S1: Loss of disc height and disc desiccation. Central disc herniation and bilateral facet arthrosis with hypertrophy of ligamentum flavum causing mild central canal stenosis and [id number] bilateral neural foraminal narrowing. Herniated disc likely contacting bilateral L5 nerve roots. IMPRESSION: 1. Grade 1 anterolisthesis of L4 on L5. No marrow edema. No acute vertebral body compression fracture. 2. Degenerative disc disease throughout lumbar spine causing various degrees of central canal stenosis and bilateral neural foraminal narrowing as described above. Dictated by: Campos Paez M.D. on 04/16/2024 at 20:02 Approved by: Campos Paez M.D. on 04/16/2024 at 20:07
--- NOTE | 2024-04-16 13:22 | DI.MRI.S_ITS ---
PROCEDURE: MR PELVIS WO CON INDICATIONS: RADIC RT LEG / NECK MASS TECHNIQUE: Noncontrast axial and oblique coronal T1 spin echo and STIR through the sacroiliac joints. COMPARISON: None. FINDINGS: Image quality: Excellent. Bones: The sacroiliac joints appear narrowed with mild adjacent subchondral sclerosis. Mild marrow edema involving right iliac bone adjacent to sacroiliac joint is seen concerning for active sacroiliitis. No bony ankylosis. No suspicious marrow space occupying lesions. Soft tissues: No presacral masses. Rectum appears normal in caliber and wall thickness. No pathologic free pelvic fluid. No gross signal abnormality is seen in bilateral included sacral plexus. IMPRESSION: 1. Bilateral sacroiliac joint space narrowing and subchondral sclerosis with suggestion of active sacroiliitis involving right sacroiliac joint. No gross bony erosion or ankylosis. 2. No other area of abnormal marrow signal. No fracture or dislocation. 3. No sacral mass or fluid collection. No gross signal abnormalities are seen in bilateral sacral plexus. Dictated by: Campos Paez M.D. on 04/16/2024 at 20:09 Approved by: Campos Paez M.D. on 04/16/2024 at 20:12
== END ==
LOC: MRI 13:21
PROVIDERS: PCP Internal Medicine; Referring Provider Internal Medicine; Visit Provider Internal Medicine
DX: M53.3 Sacrococcygeal disorders, not elsewhere classified (principal); R22.1 Localized swelling, mass and lump, neck; M47.27 Other spondylosis with radiculopathy, lumbosacral region; M51.16 Intervertebral disc disorders with radiculopathy, lumbar region; M47.26 Other spondylosis with radiculopathy, lumbar region; M48.061 Spinal stenosis, lumbar region without neurogenic claudication; M48.07 Spinal stenosis, lumbosacral region; M43.16 Spondylolisthesis, lumbar region
CPT/HCPCS: 72148; 72195; 76536

== ENCOUNTER 2024-06-14 14:25 | Outpatient (CLI) | payer MEDICARE, OTHER, SELFPAY ==
[2024-06-14] VITALS (9 sets, daily range): BP systolic 128–161; BP diastolic 62–72; PULSE 47–70; RESP 12–23; TEMP 36.6; O2SAT 94–98
--- NOTE | 2024-06-14 14:27 | DI.RAD.S_ITS ---
PROCEDURE: PAIN SI JOINT INJECTION INDICATIONS: SACRAL DYSFUNCTION COMPARISON: None. FINDINGS/IMPRESSION: Fluoroscopic spot filming was performed to verify placement of spinal needles at the right SI joint level(s), as labeled on the films. Appropriate location(s) of the needle tip(s) was confirmed by injection of iodinated contrast. Dictated by: Isac Peterson M.D. on 06/14/2024 at 18:33 Approved by: Isac Peterson M.D. on 06/14/2024 at 18:34
--- NOTE | 2024-06-14 15:22 | P.PCN_ITS ---
Date/Time/Diagnoses Date of procedure: 06/14/24 Time of procedure: 15:22 Pre-procedure diagnosis: 1. FORAMINAL STENOSIS WITH LE SYMPTOMS Post-procedure diagnosis: same Procedure Notes Procedure: 1. FLUOROSCOPICALLY GUIDED CONTRAST CONTROLLED TRANSFORAMINAL EPIDURAL STEROID INJECTION - RIGHT L3/4 TFESI Indications: Karen is referred by Dr. Stinson for treatment of Foraminal Stenosis with right LE Symptoms Physician: Abe Fernandez Total Fluoroscopy time (seconds): 11 Total sedation minutes: 17 Complications: none Procedure in detail & Post-procedure care: FINDINGS Foraminal Nerve Root Compression secondary to disc disease and facet hypertrophy DESCRIPTION OF PROCEDURE Following review of allergy and review of potential side effects and complications, including, but not necessarily limited to, infection, allergic reaction, local tissue breakdown, stroke, temporary or permanent nerve injury, paralysis, and possible , the patient indicated that the patient understood and agreed to proceed. An informed consent document was signed by the patient, witnessed by a nurse, and placed in the patient's chart. Additionally, other treatment options including medications, modalities, and physical therapy were reviewed with the patient. After review of previous anaesthesic history and IV conscious sedation the patient was deemed safe to proceed with today?s procedure with IV conscious sedation as ASA class II designation. Safety time-out was performed to confirm patient ID, procedure to be performed and site of procedure. IV sedation was accomplished with a combination of 2mg of Versed was administered by the RN after DO order, titrated to patient comfort during the course of the procedure while the patient remained responsive to all verbal commands In the prone position following sterile prep and drape of the lumbar region, the right L3/4 posterior neuroforamen was identified fluoroscopically. The skin was anesthetized via a 25-gauge 1.5-inch needle with 1% lidocaine solution. At this point, a 25-gauge 3.5-inch spinal needle was atraumatically introduced and advanced under fluoroscopic guidance through the posterior right L3/4 neuroforamen to approximately the anterior aspect of the canal. Depth was confirmed on lateral view. Following negative aspiration, injection of approximately 1.5 cc of Isovue 200 under live fluoroscopy in the AP view co nfirmed excellent flow along the nerve root, into the epidural space without vascular or intrathecal uptake observed Radiological data, including multiple fluoroscopic views of the lumbosacral spin e, reveal a spinal needle at the right L3/4 posterior neuroforamen. Subsequent views show flow of contrast material flowing superiorly and inferiorly along the nerve root confirming epidural flow. Subsequently, a test dose of 1.5 cc of 1% lidocaine solution was administered and patient was observed for two minutes for signs or symptoms of complications, including abdominal pain, shortness of breath, bilateral upper or lower extremity weakness, nausea and vomiting, prior to steroid injection. At this point, a total of 2cc or 10mg of dexamethasone and 6mg of betamethasone was injected without incident. The patient tolerated the procedure well without signs or symptoms of complications prior to transfer to the recovery area continued monitoring without incident. The patient was then transferred to the recovery area where they were observed for an appropriate time after the injection. The patient reported a VAS score of 7 prior to the procedure and a post-procedure VAS of 0. POST OP INSTRUCTIONS The patient was provided a Pain Log to continue to record their response to the target-specific procedure prior to follow-up visit with their referring p hysician. Additionally, specific post-injection care instructions and a contact number to our office were provided if concerns arise regarding possible complications associated with the procedure are suspected.
[2024-06-14] MEDS: MIDAZOLAM 2 MG/2 ML VIAL 1 MG IV (15:41)
[2024-06-14] MEDS: BETAMETHASONE 30 MG/5 ML MDV 12 MG INJ (15:48)
[2024-06-14] MEDS: BUPIVACAINE 0.5% (PF) 10 ML VIAL 2 ML INJ (15:48)
[2024-06-14] MEDS: iopamidoL 15 ML VIAL 3 ML INJ (15:49)
--- NOTE | 2024-06-14 16:04 | PM.PROC.IR.1 ---
Date/Time/Diagnoses Date of procedure: 06/14/24 Time of procedure: 16:04 Pre-procedure diagnosis: Sacroiliac joint pain/DJD Post-procedure diagnosis: same Procedure Notes Procedure: Fluoroscopically guided contrast controlled right sacroiliac joint injection Indications: Karen is referred by OLIVIER Stinson for treatment of right sacroiliac joint DJD Physician: Abe Fernandez Total Fluoroscopy time (seconds): 14 Total sedation minutes: 19 Complications: none Procedure in detail & Post-procedure care: DESCRIPTION OF PROCEDURE Fluoroscopically guided, contrast controlled right sacroiliac joint injection Following review of allergies and review of potential side effects and complications, including, but not necessarily limited to, infection, allergic reaction, local tissue breakdown, temporary as well as permanent nerve injury, paralysis, stroke and possible , the patient indicated that they understood and agreed to proceed. An informed consent was signed by the patient, witnessed by a nurse, and placed in the patient's chart. Additionally, other treatment options including modalities, medications, and physical therapy were reviewed with the patient. After review of previous anaesthesic history and IV conscious sedation the patient was deemed safe to proceed with today?s procedure with IV conscious sedation as ASA class II designation. Safety time-out was performed to confirm patient ID, procedure to be performed and site of procedure. IV sedation was accomplished with a combination of 1mg of Versed was administered by the RN after DO order, titrated to patient comfort during the course of the procedure while the patient remained responsive to all verbal commands In the prone position following sterile prep and drape of the pelvic region, the hyper lucency on in the inferior aspect of the sacroiliac joint was identified fluoroscopically the skin was anesthetized be a 25 gauge 1 eventual with approximately 2 cc of 1% lidocaine solution. At this point, a 22 gauge 3 in spinal needle was atraumatically introduced and advanced under fluoroscopic guidance into the inferior aspect of the right sacroiliac joint. Following negative aspiration, approximately 0.3cc of Isovue-300 was injected confirming intra-articular placement without vascular uptake. Radiographic data, including multiple fluoroscopic views of the pelvis, reveals a spinal needle in the sacroiliac joint hyper lucent zone. Subsequent view show flow contrast tear superiorly and inferiorly within the joint capsule without vascular intrathecal uptake. At this point a total of 1cc of 0.5% Marcaine was combined with 1cc of 6 mg of betamethasone was injected without incident. The procedure tolerated the procedure well without signs or symptoms of complications prior to transfer to the recovery area continued monitoring without incident. The patient was then transferred to the recovery area with a bur observed for an appropriate time after the injection. The patient reverted a vas score of 7 prior to the procedure and post-procedure vas of 1. POSTOP INSTRUCTIONS The patient was provided with a pain like to continue to record the patient's response to the target specific procedure prior to the patient's follow-up visit with the referring physician. Additionally, specific post injection care instructions and a contact number to our office were provided if concerns arise regarding the possible complications associated with procedure are suspected.
== END 2024-06-14 16:20 | disposition home or self-care (01) ==
LOC: RAD 14:26
PROVIDERS: PCP Internal Medicine; Referring Provider Physical Medicine & Rehabilitation; Visit Provider Physical Medicine & Rehabilitation
DX: M53.3 Sacrococcygeal disorders, not elsewhere classified (principal); M46.1 Sacroiliitis, not elsewhere classified
CPT/HCPCS: 27096; 99152; J0702; J2250

== ENCOUNTER 2024-07-06 02:29 | Emergency (ER) | payer MEDICARE, OTHER, SELFPAY ==
[2024-07-06 02:34] VITALS: BP 161/88; PULSE 161; RESP 17; TEMP 36.7; O2SAT 98; BMI 26.4
--- NOTE | 2024-07-06 02:34 | EKG_ITS ---
[id number] [place] [address] Test Date: 2024-07-06 Pat Name: Karen Lui Department: Room: Gender: Female [employer] Attorney: MATT RAMOS : 1950 Requested By: Order Number: [id number] Reading MD: Abdoul Lantigua Measurements Intervals [place] Rate: 152 P: VA: QRS: 31 QRSD: 98 T: 107 QT: 260 QTc: 413 Interpretive Statements Critical Test Result: High HR Atrial fibrillation with rapid ventricular response Marked ST abnormality, possible inferior subendocardial injury Electronically Signed On 07-12-2024 9:03:08 PST by Abdoul Lantigua
--- NOTE | 2024-07-06 02:48 | ED.ARRPALP ---
HPI - Arrhythmia/Palpitations General Chief Complaint: Arrhythmia/Palpitations Stated Complaint: heart palpitations Time Seen by Provider: 07/06/24 02:34 Source: patient Mode of arrival: Ambulatory History of Present Illness HPI narrative: Patient is a 73-year-old female. Is relatively healthy. No prior history of abnormal heart rhythms that have been diagnosed who here for evaluation of a proximally 30-60 minutes of a fast heart rate. No chest pain. No shortness of breath. No lightheadedness. She went to bed last night feeling normal and woke up approximately 30 minutes prior to coming here in the emergency department feeling like her heart was beating fast. She checked her blood pressure at home and it was elevated. It stated that her heart rate was in the 180 range. She waited several minutes and retook her heart rate and it was 150s. She had very similar symptoms about 2 months ago. This event also occurred and woke her up from her sleep. She states it lasted several hours and then resolved on its own. No diagnosis of AFib/a flutter. Related Data Home Medications Medication Instructions Recorded Confirmed cholecalciferol (vitamin D3) 25 1,000 unit PO DAILY 02/06/18 05/21/24 mcg (1,000 unit) capsule hydroxyzine HCl 25 mg tablet 25 mg PO DAILY PRN anxiety 05/21/24 05/21/24 multivitamin 1 tab PO DAILY 05/21/24 05/21/24 vitamin B complex 1 tab PO DAILY 05/21/24 05/21/24 Previous Rx's Medication Instructions Recorded diazepam 10 mg tablet (Valium) 10 mg PO .COMPLEX #7 tabs 06/05/24 Allergies Allergy/AdvReac Type Severity Reaction Status Date / Time codeine [CODEINE] AdvReac Severe Extreme Verified 06/14/24 15:13 nausea oxycodone [OXYCODONE] AdvReac Severe Extreme Verified 06/14/24 15:13 nausea Review of Systems Review of Systems Narrative: See HPI Patient History Medical History Lumbar radiculopathy Sacral dysfunction Chicken pox (~1951) Herpes (~1979) Surgical History Anesthesia Fractures (~2017) Family History Father High cholesterol Stroke Mother Stroke Social History household members: family and other Smoking Status: Never smoker alcohol intake: current Smoking Status: Never smoker alcohol intake frequency: 0-2 drinks per day Exam Initial Vital Signs Initial Vital Signs: Vital Signs Temperature 98.0 F 07/06/24 02:34 Pulse Rate 161 H 07/06/24 02:34 Respiratory Rate 17 07/06/24 02:34 Blood Pressure 161/88 H 07/06/24 02:34 Pulse Oximetry 98 07/06/24 02:34 Oxygen Delivery Method Room Air 07/06/24 02:34 Const General: cooperative, comfortable and No ill appearing HENMT Head: normal to inspection and normocephalic Resp Effort & Inspection: normal respiratory effort Auscultation: clear to auscultation bilaterally Cardio Rate: tachycardic Rhythm: regular rhythm GI Palpation: soft Neuro General: patient alert, patient awake, patient oriented x3 and moves all extremities Extrem General: capillary refill normal Course Orders Ordered: ED Orders 07/06/24 02:34 EKG-12 Lead Stat 07/06/24 02:45 Complete Blood Count AUTO DIFF Stat Comprehensive Metabolic Panel Stat Lipase Stat Magnesium Stat PTT Partial Thromboplastin [place] Stat Prothrombin Time INR Stat Troponin & CK Cardiac Panel Stat 07/06/24 03:22 EKG-12 Lead Stat Discontinued Medications Fentanyl (Fentanyl 100 Mcg/2 Ml Inj) 12.5 mcg IV NOW ONE Stop: 07/06/24 03:17 Amiodarone HCl/Dextrose (Nexterone) 150 mg in 100 mls @ 600 mls/hr IV NOW ONE; Protocol Stop: 07/06/24 02:58 Last Infusion: 07/06/24 03:08 Dose: Infused Documented By: Admin: 07/06/24 02:54 Dose: 600 mls/hr Documented By: JESUS Propofol (Propofol 200 Mg/20 Ml Vial) 100 mg IV NOW ONE Stop: 07/06/24 03:17 Vital Signs Vital signs: Vital Signs - 8 hr 07/06/24 02:34 Temperature 98.0 F Pulse Rate 161 H Respiratory Rate 17 Blood Pressure 161/88 H Pulse Oximetry 98 Oxygen Delivery Method Room Air MDM - Arrhythmia/Palpitations Medical Records Attestation: I reviewed the patient's medical records. Lab Data Attestation: I reviewed the patient's lab results. 07/06/24 02:45 07/06/24 02:45 Labs: Lab Results 07/06/24 Range/Units 02:45 WBC 7.9 (4.5-11.0) X10^3/uL RBC 4.55 (4.0-5.2) X10^6/uL Hgb 14.3 (12.0-16.0) g/dL Hct 43.5 (36-46) % MCV 95.8 (80-100) fL MCH 31.4 (26-34) PG MCHC 32.8 (30-36) % RDW 14.2 (11.6-14.8) % Plt Count 307 (150-400) X10^3/uL Neut % (Auto) 36.4 L (50-75) % Lymph % (Auto) 48.7 H (25-40) % Dickenson % (Auto) 7.5 (3-14) % Eos % (Auto) 6.7 H (2-4) % Baso % (Auto) 0.7 (0-2) % Neut # (Auto) 2900 (8324-0526) /uL Lymph # (Auto) 3800 (5386-5921) /uL Dickenson # (Auto) 600 (0-900) /uL Eos # (Auto) 500 H (0-450) /uL Baso # (Auto) 100 (0-100) /uL PT 10.1 (9.4-12.5) SECONDS INR 0.9 (0.9-1.3) APTT 31 (25.1-36.5) SECONDS Sodium 138 (137-145) mmol/L Potassium 4.0 (3.4-5.1) mmol/L Chloride 108 H (98-107) mmol/L Carbon Dioxide 24 (22-32) mmol/L BUN 16 (7-17) mg/dL Creatinine 0.91 (0.52-1.04) mg/dL Estimated GFR > 60 (>60) mL/min BUN/Creatinine Ratio 17.6 (6-22) Glucose 139 H (80-110) mg/dL Calcium 9.6 (8.4-10.2) mg/dL Magnesium 1.8 (1.6-2.3) mg/dL Total Bilirubin 0.5 (0.2-1.3) mg/dL AST 31 (14-36) IU/L ALT 27 (<35) IU/L Alkaline Phosphatase 77 (38-126) U/L Total Creatine Kinase 125 (30-135) U/L Troponin I < 0.012 (0.01-0.034) ng/mL Total Protein 7.3 (6.3-8.2) g/dL Albumin 4.3 (3.5-5.0) g/dL Globulin 3.0 (1.7-4.1) g/dL Albumin/Globulin Ratio 1.4 (1.0-2.8) Lipase 115 (23-300) U/L ECG Data Attestation: I personally reviewed and interpreted this ECG as follows: Interpretation: Atrial fibrillation/flutter Ventricular rate of [address] depressions for V5 V6 no ST elevations Repeat EKG Sinus rhythm Ventricular rate is 77 Normal axis Normal QRS No ST T wave changes MDM Narrative Medical decision making narrative: Patient arrives in what appears to be atrial fibrillation/atrial flutter. Her heart rate is somewhat consistent in the 150-155 range which makes me somewhat or concern for atrial flutter. No prior diagnosis of this although she would very similar symptoms approximately 2 months ago. Her electrolytes are unremarkable. Troponin is negative. No chest pain. We discussed the risks and benefits of rate control versus rhythm control. She was given a dose of amiodarone. When she did not convert we discussed cardioversion. She signed consent form. Prior to any procedure she converted to sinus rhythm. Her symptoms are now resolved. She has been persistently in sinus rhythm since conversion. Will have the patient contact her primary doctor for a follow-up to discuss echocardiogram and Holter monitor. Will hold on anticoagulation for now. She was given return precautions and follow-up instructions. She expressed understanding and agreement with the plan. Discharge Plan Departure Patient Disposition: Home Clinical Impression: Atrial fibrillation Instructions: DI for Atrial Fibrillation Activity Restrictions/Additional Instructions: Continue to take all of your medications as directed. Recommend that you contact your primary care doctor tomorrow for a follow-up to discuss the indications for a Holter monitor and echocardiogram. Return to the emergency department for new or worsening symptoms. Prescriptions: No Action diazepam [Valium] 10 mg tablet 10 mg PO .COMPLEX MDD 3 tabs Qty: 7 0RF Rx Instructions: 1 to 2 tabs 1hr prior to spinal procedure. May take an additional tab if steroid flare experienced the night after the procedure. cholecalciferol (vitamin D3) 1,000 unit capsule 1,000 unit PO DAILY multivitamin Tablet 1 tab PO DAILY vitamin B complex Tablet 1 tab PO DAILY hydroxyzine HCl 25 mg tablet 25 mg PO DAILY PRN (Reason: anxiety) Referrals: Marlee Stinson ARNP [Primary Care Provider] - Stand Alone Forms: Patient Portal/API/Survey
[2024-07-06 02:54] LABS: Add Manual Diff / Slide Review NO; Basophils Absolute Auto 100 /uL (0-100); Basophils Percent Auto 0.7 % (0-2); Eosinophils Absolute Auto 500 /uL (0-450); Eosinophils Percent Auto 6.7 % (2-4); Hematocrit 43.5 % (36-46); Hemoglobin 14.3 g/dL (12.0-16.0); Lymphocytes Absolute Auto 3800 /uL (1100-4500); Lymphocytes Percent Auto 48.7 % (25-40); Mean Corpuscular HGB Conc 32.8 % (30-36); Mean Corpuscular Hemoglobin 31.4 PG (26-34); Mean Corpuscular Volume 95.8 fL (80-100); Monocytes Absolute Auto 600 /uL (0-900); Monocytes Percent Auto 7.5 % (3-14); Neutrophils Absolute Auto 2900 /uL (1500-7000); Neutrophils Percent Auto 36.4 % (50-75); Platelet Count 307 X10^3/uL (150-400); Red Blood Cell Count 4.55 X10^6/uL (4.0-5.2); Red Cell Distribution Width 14.2 % (11.6-14.8); White Blood Cell Count 7.9 X10^3/uL (4.5-11.0)
[2024-07-06] MEDS: AMIODARONE 150 MG/100 ML PIGGYBACK 600 MG IV (02:54)
[2024-07-06 02:55] VITALS: BP 182/123; PULSE 151; RESP 13; O2SAT 97
[2024-07-06 02:56] LABS: INR 0.9 (0.9-1.3); Prothrombin Time 10.1 SECONDS (9.4-12.5)
[2024-07-06 02:59] LABS: PTT Partial Thromboplastin Tim 31 SECONDS (25.1-36.5)
[2024-07-06 03:00] VITALS: BP 157/98; PULSE 153; RESP 13; O2SAT 96
[2024-07-06 03:01] LABS: Alanine Aminotransferase 27 IU/L (<35); Albumin 4.3 g/dL (3.5-5.0); Albumin Globulin Ratio 1.4 (1.0-2.8); Alkaline Phosphatase 77 U/L (38-126); Aspartate Aminotransferase 31 IU/L (14-36); BUN Creatinine Ratio 17.6 (6-22); Bilirubin Total 0.5 mg/dL (0.2-1.3); Blood Urea Nitrogen 16 mg/dL (7-17); Calcium 9.6 mg/dL (8.4-10.2); Carbon Dioxide 24 mmol/L (22-32); Chloride 108 mmol/L (98-107); Creatine Kinase 125 U/L (30-135); Estimated Glomerular Filt Rate > 60 mL/min (>60); Glucose 139 mg/dL (80-110); HEMOLYSIS < 15 (0-50); Lipase 115 U/L (23-300); Magnesium 1.8 mg/dL (1.6-2.3); Sodium 138 mmol/L (137-145); Total Protein 7.3 g/dL (6.3-8.2)
[2024-07-06 03:12] LABS: Troponin I < 0.012 ng/mL (0.01-0.034)
--- NOTE | 2024-07-06 03:22 | EKG_ITS ---
[address] [address] Test Date: 2024-07-06 Pat Name: Karen Lui Department: Room: Gender: Female Rn Intake: DANIEL : 1950 Requested By: Order Number: [id number] Reading MD: Abdoul Lantigua Measurements Intervals [place] Rate: 77 P: 75 DC: 158 QRS: -2 QRSD: 94 T: 34 QT: 380 QTc: 430 Interpretive Statements Normal sinus rhythm Electronically Signed On 07-12-2024 9:03:12 PST by Abdoul Lantigua
[2024-07-06 03:30] VITALS: BP 137/66; PULSE 79; RESP 14; O2SAT 96
[2024-07-06 04:05] VITALS: BP 156/81; PULSE 79; RESP 17; O2SAT 96
[2024-07-06 04:10] VITALS: BP 156/81; PULSE 79; RESP 16; O2SAT 96
== END 2024-07-06 04:11 | disposition home or self-care (01) ==
PROVIDERS: Emergency Provider Emergency Medicine; PCP Internal Medicine
DX: I48.91 Unspecified atrial fibrillation (principal)
CPT/HCPCS: 36415; 80053; 82550; 83690; 83735; 84484; 85025; 85610; 85730; 93005; 96374; 99284; J0282

== ENCOUNTER → 2024-09-10 10:20 | Outpatient (CLI) | payer MEDICARE, OTHER, SELFPAY ==
--- NOTE | 2024-09-10 10:21 | DI.ECHO.S_ITS ---
[facility] : : [address] : : [place] : : [id number] : : Phone: [phone] Echocardiogram Report + + :Name: RASHAWN NAILS Study Date: 09/10/2024 Height: 71 in : :[facility] ReadingLocation: Weight: 185 lb : : Gender: Female BSA: 2.0 m2 : :: 1950 Age: 74 yrs BP: 157/76 mmHg: :Reason For Study: PAROXYSMAL ATRIAL FIBRILLATION : :Ordering Physician: LEXII, : :JUS Performed By: Jeffery Barkley : :Referring: JUS SHULTZ : + + Interpretation Summary Normal left ventricle size with ejection fraction 60-65%. The left atrium is moderately dilated. There is mild aortic valve sclerosis. There is mild mitral regurgitation. Comparison is made with the echocardiogram of 08/19/2021, no significant change. Procedure: A two-dimensional transthoracic echocardiogram with color flow and Doppler was performed. The study quality was technically good. Comparison is made with the echocardiogram of 08/19/2021. The patient was in atrial fibrillation with heart rates between 50-68 bpm during the exam. Left Ventricle: The left ventricle is normal in size. There is normal left ventricular wall thickness. There is no ventricular septal defect visualized. The ejection fraction is estimated to be 60-65%. There are no focal wall motion abnormalities. Right Ventricle: The right ventricle is normal in size and function. Atria: The left atrium is moderately dilated. Right atrial size is normal. There is no Doppler evidence for an atrial septal defect. Mitral Valve: The mitral valve leaflets appear normal. There is no evidence of stenosis, fluttering, or prolapse. There is mild mitral regurgitation. Aortic Valve: The aortic valve is trileaflet. The aortic valve opens well. There is mild aortic valve sclerosis. There is trace aortic regurgitation. Tricuspid Valve: The tricuspid valve leaflets are thin and pliable. There is trace tricuspid regurgitation. The right ventricular systolic pressure is estimated to be at least 24 mmHg based on an estimated right atrial pressure of 3 mm Hg. Pulmonic Valve: The pulmonic valve is not well seen, but is grossly normal. There is no pulmonic valvular regurgitation. Great Vessels: The aortic root is mildly dilated. The dimensions of the ascending aorta are normal. The pulmonary artery is not well visualized, but is probably normal size. The inferior vena cava appeared normal. Pericardium/ Pleura There is no pericardial effusion. There is no pleural effusion. MMode/2D Measurements & Calculations LVIDd: 5.4 cm LVOT diam: 2.2 cm LVIDs: 3.8 cm Ao root diam: 3.7 cm FS: 28.6 % asc Aorta Diam: 3.6 cm EPSS: 0.37 cm IVSd: 1.0 cm LVPWd: 1.1 cm LV bates. diameter/BSA (cm/m^2): 2.6 LV sys. diameter/BSA (cm/m^2): 1.9 LA A2 area: 21.1 cm2 RA long axis: 4.2 cm LA A4 area: 20.7 cm2 RA area: 11.7 cm2 LA length (vol): 5.3 cm RA vol: 27.6 ml LA vol: 69.9 ml RA : 13.5 ml/m2 LA vol index: 34.3 ml/m2 IVC diam: 1.4 cm RVD1 (basal): 3.4 cm RVD2 (mid): 3.1 cm TAPSE: 3.0 cm Doppler Measurements & Calculations Ao V2 max: 164.6 cm/sec LVOT Max Brayan: 122.1 cm/sec Ao V2 mean: 113.7 cm/sec LV V1 max P.0 mmHg Ao max P.8 mmHg LV V1 VTI: 30.9 cm Ao mean P.8 mmHg MARTI(I,D): 2.8 cm2 Ao V2 VTI: 40.2 cm MARTI(V,D): 2.7 cm2 sev ratio: 0.77 MARTI indexed to BSA (cm^2/m^2): 1.4 MV E max brayan: 84.6 cm/sec TR max brayan: 227.7 cm/sec MV A max brayan: 49.8 cm/sec TR max P.7 mmHg MV E/A: 1.7 PA V2 max: 82.4 cm/sec Med Peak E' Brayan: 7.0 cm/sec PA V2 mean: 62.2 cm/sec E/E' med: 12.1 PA mean P.6 mmHg Lat Peak E' Brayan: 7.2 cm/sec PA pr(Accel): 22.5 mmHg E/E' lat: 11.8 E/e' average: 11.9 MV dec time: 0.20 sec SV(LVOT): 112.5 ml Electronically signed by: Muna Alejandre on Reading Physician:09/10/2024 05:01 PM
== END ==
PROVIDERS: PCP Family Medicine; Referring Provider Internal Medicine; Visit Provider Internal Medicine
DX: I48.0 Paroxysmal atrial fibrillation (principal); I08.0 Rheumatic disorders of both mitral and aortic valves; I77.810 Thoracic aortic ectasia
CPT/HCPCS: 93306

== ENCOUNTER 2024-09-28 08:57 | Emergency (ER) | payer MEDICARE, OTHER, SELFPAY ==
[2024-09-28] VITALS (16 sets, daily range): BP systolic 157–194; BP diastolic 77–110; PULSE 47–85; RESP 11–22; TEMP 37; O2SAT 94–100; BMI 26.4
--- NOTE | 2024-09-28 09:02 | DI.RAD.S_ITS ---
PROCEDURE: XR CHEST 1V INDICATIONS: chest pain TECHNIQUE: One view of the chest was acquired. COMPARISON: None. FINDINGS: Surgical changes and devices: None. Lungs and pleura: Lungs are clear. No pleural effusions or pneumothorax. Mediastinum: Mediastinal contours appear normal. Heart size is normal. Bones and chest wall: No suspicious bony lesions. Overlying soft tissues appear unremarkable. IMPRESSION: No acute cardiopulmonary abnormality is seen. Dictated by: Isac Peterson M.D. on 09/28/2024 at 9:45 Approved by: Isac Peterson M.D. on 09/28/2024 at 9:46
--- NOTE | 2024-09-28 09:02 | ED.GENADULT ---
HPI - General Adult General Chief complaint: Chest Pain Stated complaint: High blood pressure Time Seen by Provider: 09/28/24 09:01 History of Present Illness HPI narrative: 74-year-old female with no known coronary artery disease, has had palpitations and fast heart rate sensations intermittently, had ZIO patch outpatient cardiac monitoring, outpatient echocardiogram that showed mild aortic regurgitation per patient report, waiting to see cardiology Dr. Zaldivar in follow up, hyperlipidemia on new statin medication, low back discomfort having recently started on meloxicam in anticipation of EPSI in the next couple of weeks. This morning she is anticipating picking up her daughter from the airport, felt substernal chest discomfort, nonradiating, no associated diaphoresis, slight nausea, took her blood pressure which was elevated, systolic blood pressure greater than 200, subsequent blood pressure improved, she went for a walk, rechecked her blood pressure, blood pressure elevated again, still having some residual chest discomfort, here for evaluation by private vehicle. No prior cardiac stress testing or cardiac catheterization recalled. Reports cardiac risk factor of hyperlipidemia but no history of diabetes, hypertension for which she is on any medication, family history, no significant smoking (smoked for a few years in her 20s). No recent cough, fevers or chills. No shortness of breath. Symptoms improved without specific treatment. Related Data Home Medications Medication Instructions Recorded Confirmed cholecalciferol (vitamin D3) 25 1,000 unit PO DAILY 02/06/18 09/12/24 mcg (1,000 unit) capsule hydroxyzine HCl 25 mg tablet 25 mg PO DAILY PRN anxiety 05/21/24 09/12/24 multivitamin 1 tab PO DAILY 05/21/24 09/12/24 vitamin B complex 1 tab PO DAILY 05/21/24 09/12/24 Previous Rx's Medication Instructions Recorded meloxicam 15 mg tablet 15 mg PO DAILY #30 tabs 09/12/24 Allergies Allergy/AdvReac Type Severity Reaction Status Date / Time codeine [CODEINE] AdvReac Severe Extreme Verified 09/12/24 15:55 nausea oxycodone [OXYCODONE] AdvReac Severe Extreme Verified 09/12/24 15:55 nausea Patient History Medical History Chicken pox (~1950) Facet arthropathy, lumbar Herpes (~1979) Lumbar radiculopathy Sacral dysfunction Surgical History Anesthesia Fractures (~2017) Family History Father High cholesterol Stroke Mother Stroke Social History household members: family and other Smoking Status: Never smoker alcohol intake: current Smoking Status: Never smoker alcohol intake frequency: 0-2 drinks per day Exam Narrative Exam Narrative: GENERAL: Well-developed patient, in mild distress. HEAD: Atraumatic. Normocephalic. EYES: Pupils equal round and reactive. Extraocular motions intact. No scleral icterus. No injection or drainage. ENT: Nose without bleeding, purulent drainage. Throat without erythema, tonsillar hypertrophy or exudate. Airway patent. NECK: Trachea midline. Non tender CARDIOVASCULAR: Regular rate and rhythm without murmurs, gallops, or rubs. RESPIRATORY: Clear to auscultation. Breath sounds equal bilaterally. No wheezes, rales, or rhonchi. GASTROINTESTINAL: Abdomen soft, non-tender, nondistended. EXTREMITIES: No edema or joint tenderness. BACK: Nontender without deformity or crepitance. No flank tenderness. NEURO: AOx3. Motor functions grossly nonfocal SKIN: No rash or erythema of visible areas Initial Vital Signs Initial Vital Signs: Vital Signs Pulse Rate 85 09/28/24 09:01 Blood Pressure 182/84 H 09/28/24 09:01 Pulse Oximetry 94 09/28/24 09:01 Scores HEART Score Heart Score history: Slightly Suspicious Heart Score EKG: Normal Heart Score Age: > or = 65 years old Heart Score risk factors: 1-2 risk factors Heart Score troponin: < or = to normal limit Heart Score Total: 3 Course Orders Ordered: ED Orders 09/28/24 11:33 Troponin I Stat Discontinued Medications Aspirin (Aspirin 81 Mg Chew Tab) 324 mg PO NOW ONE Stop: 09/28/24 09:02 Last Admin: 09/28/24 09:28 Dose: 324 mg Documented By: AMADO Nitroglycerin (Nitroglycerin 0.4 Mg Sl Tab) 0.4 mg SL [id number] PRN PRN Reason: Chest Pain Vital Signs Vital signs: Vital Signs - 8 hr 09/28/24 12:15 09/28/24 12:15 09/28/24 12:30 Pulse Rate 47 L 48 L Respiratory Rate 11 L 16 Blood Pressure 166/77 H 177/83 H Pulse Oximetry 99 98 Medical Decision Making Lab Data 09/28/24 09:11 09/28/24 09:11 Labs: Lab Results 09/28/24 09/28/24 Range/Units 09:11 11:33 WBC 6.6 (4.5-11.0) X10^3/uL RBC 4.48 (4.0-5.2) X10^6/uL Hgb 14.4 (12.0-16.0) g/dL Hct 43.1 (36-46) % MCV 96.1 (80-100) fL MCH 32.0 (26-34) PG MCHC 33.3 (30-36) % RDW 14.2 (11.6-14.8) % Plt Count 257 (150-400) X10^3/uL Neut % (Auto) 61.1 (50-75) % Lymph % (Auto) 28.9 (25-40) % Norman % (Auto) 5.8 (3-14) % Eos % (Auto) 3.3 (2-4) % Baso % (Auto) 0.9 (0-2) % Neut # (Auto) 4000 (7683-2571) /uL Lymph # (Auto) 1900 (9894-1416) /uL Norman # (Auto) 400 (0-900) /uL Eos # (Auto) 200 (0-450) /uL Baso # (Auto) 100 (0-100) /uL PT 10.6 (9.4-12.5) SECONDS INR 0.9 (0.9-1.3) APTT 32 (25.1-36.5) SECONDS Sodium 139 (137-145) mmol/L Potassium 4.4 (3.4-5.1) mmol/L Chloride 105 (98-107) mmol/L Carbon Dioxide 25 (22-32) mmol/L BUN 19 H (7-17) mg/dL Creatinine 1.03 (0.52-1.04) mg/dL Estimated GFR 57 L (>60) mL/min BUN/Creatinine Ratio 18.4 (6-22) Glucose 153 H (80-110) mg/dL Calcium 9.4 (8.4-10.2) mg/dL Magnesium 1.9 (1.6-2.3) mg/dL Total Bilirubin 0.9 (0.2-1.3) mg/dL AST 29 (14-36) IU/L ALT 25 (<35) IU/L Alkaline Phosphatase 66 (38-126) U/L Total Creatine Kinase 105 (30-135) U/L Troponin I < 0.012 < 0.012 (0.01-0.034) ng/mL NT-Pro-B Natriuret Pep 364 (<450) pg/mL Total Protein 7.7 (6.3-8.2) g/dL Albumin 4.7 (3.5-5.0) g/dL Globulin 3.0 (1.7-4.1) g/dL Albumin/Globulin Ratio 1.6 (1.0-2.8) Lipase 93 (23-300) U/L ECG Data Attestation: I personally reviewed and interpreted this ECG as follows: Interpretation: Normal sinus rhythm with rate 77, no obvious ST segment elevation or depression changes. MS 170, QRS 96, QTC 441. MDM Narrative Medical decision making narrative: 74-year-old female with no known coronary artery disease, has risk factor of hyperlipidemia on recent statin medication, also recently started meloxicam for low back pain awaiting EPSI procedure in two weeks, history of palpitation fast heart rate sensation had outpatient ZIO patch monitoring and outpatient echocardiogram. This morning had elevated blood pressures with substernal chest discomfort, improved, residual discomfort on arrival here resolved without specific treatment. Elevated blood pressures reported at home. Systolic blood pressure 160s here without treatment. Screening EKG unremarkable. Labs pending. Chest x-ray pending. Oral aspirin given. HEART score 3, low risk range. Resolved chest pain without specific treatment, initial troponin negative, will recheck interval troponin. Records review. Report located for echocardiogram 09/10/2024, read by Dr. Calhoun. Summary: Normal left ventricular size with ejection fraction 60-65%. The left atrium is moderately dilated. There is mild aortic valve sclerosis. There is mild mitral regurgitation. Comparison made with echocardiogram 08/19/2021, no significant change. Copy of the printed report given to patient. Repeat troponin also negative. Patient would like to go home, wants to go strip picker her daughter from airport. Advised further workup as outpatient for now. Return precautions discussed. Discharge Plan Departure Patient Disposition: Home Clinical Impression: Chest pain, Elevated blood pressure reading Activity Restrictions/Additional Instructions: Chest discomfort unclear etiology. EKG and serial blood tests not suggestive of heart attack at this time. Chest x-ray no acute changes per Radiology interpretation. Consider use of aspirin for now. Reported increased blood pressure at home, not nearly as high while in the emergency department. Discuss blood pressure medications as needed with your regular provider. You felt better and wanted to go home. Consider recheck with your regular provider early next week. Follow up as planned with cardiology Dr. Zaldivar, though perhaps your primary care doctor would facilitate an earlier consultation. Consider taking aspirin daily for now. Recheck earlier this/nearest emergency department for any change worsening symptoms or any concerns prior. Prescriptions: No Action cholecalciferol (vitamin D3) 1,000 unit capsule 1,000 unit PO DAILY multivitamin Tablet 1 tab PO DAILY vitamin B complex Tablet 1 tab PO DAILY hydroxyzine HCl 25 mg tablet 25 mg PO DAILY PRN (Reason: anxiety) meloxicam 15 mg tablet 15 mg PO DAILY Qty: 30 2RF Referrals: Tiffany Mims MD [Primary Care Provider] - Stand Alone Forms: Patient Portal/API/Survey
--- NOTE | 2024-09-28 09:05 | EKG_ITS ---
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
[2024-09-28 09:21] LABS: Add Manual Diff / Slide Review NO; Basophils Absolute Auto 100 /uL (0-100); Basophils Percent Auto 0.9 % (0-2); Eosinophils Absolute Auto 200 /uL (0-450); Eosinophils Percent Auto 3.3 % (2-4); Hematocrit 43.1 % (36-46); Hemoglobin 14.4 g/dL (12.0-16.0); Lymphocytes Absolute Auto 1900 /uL (1100-4500); Lymphocytes Percent Auto 28.9 % (25-40); Mean Corpuscular HGB Conc 33.3 % (30-36); Mean Corpuscular Volume 96.1 fL (80-100); Monocytes Absolute Auto 400 /uL (0-900); Monocytes Percent Auto 5.8 % (3-14); Neutrophils Absolute Auto 4000 /uL (1500-7000); Neutrophils Percent Auto 61.1 % (50-75); Platelet Count 257 X10^3/uL (150-400); Red Blood Cell Count 4.48 X10^6/uL (4.0-5.2); Red Cell Distribution Width 14.2 % (11.6-14.8); White Blood Cell Count 6.6 X10^3/uL (4.5-11.0)
[2024-09-28] MEDS: ASPIRIN 81 MG CHEW TAB 324 MG PO (09:28)
[2024-09-28 09:31] LABS: INR 0.9 (0.9-1.3); Prothrombin Time 10.6 SECONDS (9.4-12.5)
[2024-09-28 09:33] LABS: PTT Partial Thromboplastin Tim 32 SECONDS (25.1-36.5)
--- NOTE | 2024-09-28 09:33 | PC.NURSE ---
Addendum entered by Anastasia Mario R.N. 09/28/24 09:36: 0930 Dr King at bedside. Verbal order to hold nitro as pt states that cp has resolved and bp down to 160s systolic. Original Note: 0911 Pt woke up this morning at about 0630 with what she describes as a twinge of chest pain and pressure. Checked her bp at home and bp was 200s systolic. Pt reports that her bp is usually on the lower end. C/o 3/10 left-sided dull chest pressure. Denies n/v, SOB, abd pain. Denies any significant cardiac hx and HTN. Pt ambulated into dept with steady gait. A&Ox4.
[2024-09-28 09:35] LABS: Alanine Aminotransferase 25 IU/L (<35); Albumin 4.7 g/dL (3.5-5.0); Albumin Globulin Ratio 1.6 (1.0-2.8); Alkaline Phosphatase 66 U/L (38-126); Aspartate Aminotransferase 29 IU/L (14-36); BUN Creatinine Ratio 18.4 (6-22); Bilirubin Total 0.9 mg/dL (0.2-1.3); Blood Urea Nitrogen 19 mg/dL (7-17); Calcium 9.4 mg/dL (8.4-10.2); Carbon Dioxide 25 mmol/L (22-32); Chloride 105 mmol/L (98-107); Creatine Kinase 105 U/L (30-135); Estimated Glomerular Filt Rate 57 mL/min (>60); Glucose 153 mg/dL (80-110); HEMOLYSIS 19 (0-50); Lipase 93 U/L (23-300); Magnesium 1.9 mg/dL (1.6-2.3); Potassium 4.4 mmol/L (3.4-5.1); Sodium 139 mmol/L (137-145); Total Protein 7.7 g/dL (6.3-8.2)
[2024-09-28 09:47] LABS: NT-proBNP (BNP-Adult 18+) 364 pg/mL (<450); Troponin I < 0.012 ng/mL (0.01-0.034)
[2024-09-28 12:04] LABS: Troponin I < 0.012 ng/mL (0.01-0.034)
== END 2024-09-28 12:32 | disposition home or self-care (01) ==
PROVIDERS: Emergency Provider Emergency Medicine; PCP Family Medicine
DX: R07.9 Chest pain, unspecified (principal); I10 Essential (primary) hypertension; M54.50 Low back pain, unspecified
CPT/HCPCS: 36415; 71045; 80053; 82550; 83690; 83735; 83880; 84484; 85025; 85610; 85730; 93005; 99284

== ENCOUNTER 2024-09-30 10:23 | Emergency (ER) | payer MEDICARE, OTHER, SELFPAY ==
[2024-09-30] VITALS (12 sets, daily range): BP systolic 160–190; BP diastolic 70–88; PULSE 44–66; RESP 16–28; TEMP 36.5; O2SAT 96–98; BMI 26.4
--- NOTE | 2024-09-30 10:27 | DI.RAD.S_ITS ---
PROCEDURE: XR CHEST 1V INDICATIONS: chest pain TECHNIQUE: One view of the chest was acquired. COMPARISON: [facility], CR, XR CHEST 1V, 09/28/2024, 9:21. FINDINGS: Surgical changes and devices: None. Lungs and pleura: Lungs are clear. No pleural effusions or pneumothorax. Mediastinum: Mediastinal contours appear normal. Heart size is normal. Bones and chest wall: No suspicious bony lesions. Overlying soft tissues appear unremarkable. IMPRESSION: No acute cardiothoracic process. Dictated by: Cheo Clarke M.D. on 09/30/2024 at 10:33 Approved by: Cheo Clarke M.D. on 09/30/2024 at 10:33
--- NOTE | 2024-09-30 10:31 | EKG_ITS ---
[address] [address] Test Date: 2024-09-30 Pat Name: Karen Lui Department: [facility] Room: Gender: Female Live Hanger: CHAVO : 1950 Requested By: Order Number: [id number] Reading MD: Brady Chappell MD Measurements Intervals [place] Rate: 48 P: 38 CA: 130 QRS: 3 QRSD: 94 T: 37 QT: 414 QTc: 369 Interpretive Statements Sinus bradycardia Electronically Signed On 09-30-2024 15:03:59 PDT by Brady Chappell MD
[2024-09-30 11:11] LABS: Add Manual Diff / Slide Review NO; Basophils Absolute Auto 0 /uL (0-100); Basophils Percent Auto 0.6 % (0-2); Eosinophils Absolute Auto 200 /uL (0-450); Eosinophils Percent Auto 2.7 % (2-4); Hematocrit 40.6 % (36-46); Hemoglobin 13.7 g/dL (12.0-16.0); Lymphocytes Absolute Auto 1800 /uL (1100-4500); Lymphocytes Percent Auto 24.6 % (25-40); Mean Corpuscular HGB Conc 33.6 % (30-36); Mean Corpuscular Volume 95.1 fL (80-100); Monocytes Absolute Auto 600 /uL (0-900); Monocytes Percent Auto 8.4 % (3-14); Neutrophils Absolute Auto 4600 /uL (1500-7000); Neutrophils Percent Auto 63.7 % (50-75); Platelet Count 267 X10^3/uL (150-400); Red Blood Cell Count 4.27 X10^6/uL (4.0-5.2); White Blood Cell Count 7.2 X10^3/uL (4.5-11.0)
[2024-09-30 11:22] LABS: Prothrombin Time 11.3 SECONDS (9.4-12.5)
[2024-09-30 11:24] LABS: PTT Partial Thromboplastin Tim 32 SECONDS (25.1-36.5)
[2024-09-30 11:25] LABS: Alanine Aminotransferase 25 IU/L (<35); Albumin 4.5 g/dL (3.5-5.0); Albumin Globulin Ratio 1.6 (1.0-2.8); Alkaline Phosphatase 60 U/L (38-126); Aspartate Aminotransferase 30 IU/L (14-36); BUN Creatinine Ratio 20.2 (6-22); Bilirubin Total 0.9 mg/dL (0.2-1.3); Blood Urea Nitrogen 18 mg/dL (7-17); Calcium 9.2 mg/dL (8.4-10.2); Carbon Dioxide 25 mmol/L (22-32); Chloride 105 mmol/L (98-107); Creatine Kinase 119 U/L (30-135); Estimated Glomerular Filt Rate > 60 mL/min (>60); Globulin 2.8 g/dL (1.7-4.1); Glucose 113 mg/dL (80-110); HEMOLYSIS < 15 (0-50); Lipase 70 U/L (23-300); Potassium 4.3 mmol/L (3.4-5.1); Sodium 139 mmol/L (137-145); Total Protein 7.3 g/dL (6.3-8.2)
[2024-09-30 11:37] LABS: NT-proBNP (BNP-Adult 18+) 222 pg/mL (<450); Troponin I < 0.012 ng/mL (0.01-0.034)
--- NOTE | 2024-09-30 11:37 | ED_ITS ---
HPI - Chest Pain General Chief Complaint: Chest Pain Stated Complaint: bp over 200, dizzy and tingling in jaw Time Seen by Provider: 09/30/24 10:42 History of Present Illness HPI narrative: 74-year-old female with no known coronary artery disease, intermittent palpitation and fast heart rate sensations in the past, prior ZIO patch outpatient cardiac monitoring, outpatient echocardiogram, awaiting consultation with Dr. Sloan fuentes, was here on 09/28/2024 with substernal chest discomfort, EKG and serial blood tests not suggestive of heart attack, discharged home. Today at [facility] she had slight chest discomfort, no shortness of breath, some tingling in her lower face both sides, no associated palpitations, did not feel like she was going to pass out. No diaphoresis associated. She went home, her home blood pressure cuff measured systolic 207, no blood pressure medications available at home, here for further evaluation. No longer having those symptoms. Related Data Home Medications Medication Instructions Recorded Confirmed cholecalciferol (vitamin D3) 25 1,000 unit PO DAILY 02/06/18 09/12/24 mcg (1,000 unit) capsule hydroxyzine HCl 25 mg tablet 25 mg PO DAILY PRN anxiety 05/21/24 09/12/24 multivitamin 1 tab PO DAILY 05/21/24 09/12/24 vitamin B complex 1 tab PO DAILY 05/21/24 09/12/24 Previous Rx's Medication Instructions Recorded meloxicam 15 mg tablet 15 mg PO DAILY #30 tabs 09/12/24 lisinopril 10 mg tablet 10 mg PO DAILY #30 tabs 09/30/24 Allergies Allergy/AdvReac Type Severity Reaction Status Date / Time codeine [CODEINE] AdvReac Severe Extreme Verified 09/12/24 15:55 nausea oxycodone [OXYCODONE] AdvReac Severe Extreme Verified 09/12/24 15:55 nausea Patient History Medical History Chicken pox (~1950) Facet arthropathy, lumbar Herpes (~1979) Lumbar radiculopathy Sacral dysfunction Surgical History Anesthesia Fractures (~2016) Family History Father High cholesterol Stroke Mother Stroke Social History household members: family and other Smoking Status: Never smoker alcohol intake: current Smoking Status: Never smoker alcohol intake frequency: 0-2 drinks per day Exam Narrative Exam Narrative: GENERAL: Well-developed patient, in mild distress. HEAD: Atraumatic. Normocephalic. EYES: Pupils equal round and reactive. Extraocular motions intact. No scleral icterus. No injection or drainage. ENT: Nose without bleeding, purulent drainage. Throat without erythema, tonsillar hypertrophy or exudate. Airway patent. NECK: Trachea midline. Non tender CARDIOVASCULAR: Regular rate and rhythm without murmurs, gallops, or rubs. RESPIRATORY: Clear to auscultation. Breath sounds equal bilaterally. No wheezes, rales, or rhonchi. GASTROINTESTINAL: Abdomen soft, non-tender, nondistended. EXTREMITIES: No edema or joint tenderness. BACK: Nontender without deformity or crepitance. No flank tenderness. NEURO: AOx3. Motor functions grossly nonfocal SKIN: No rash or erythema of visible areas Initial Vital Signs Initial Vital Signs: Vital Signs Blood Pressure 190/88 H 09/30/24 10:33 Course Orders Ordered: ED Orders 09/30/24 13:03 Trop I [Troponin I] Stat Discontinued Medications Aspirin (Aspirin 81 Mg Chew Tab) 324 mg PO NOW ONE Stop: 09/30/24 10:28 Last Admin: 09/30/24 10:48 Dose: Not Given Documented By: CTS Vital Signs Vital signs: Vital Signs - 8 hr 09/30/24 13:30 09/30/24 13:30 09/30/24 14:00 Pulse Rate 60 56 L Respiratory Rate 21 28 H Blood Pressure 171/78 H Pulse Oximetry 97 Oxygen Delivery Method Room Air 09/30/24 14:00 Pulse Rate Respiratory Rate Blood Pressure 173/77 H Pulse Oximetry Oxygen Delivery Method MDM - Chest Pain Lab Data Attestation: I reviewed the patient's lab results. Lab results narrative: White blood cell count 7200, hemoglobin 13.7, platelets 267,000 adequate. Glucose 113. BUN 18 with creatinine 0.89. Sodium 139 with potassium 4.3, chloride 105, serum CO2 25. 09/30/24 11:04 09/30/24 11:04 Labs: Lab Results 03/23/25 03/23/25 Range/Units 11:04 13:03 WBC 7.2 (4.5-11.0) X10^3/uL RBC 4.27 (4.0-5.2) X10^6/uL Hgb 13.7 (12.0-16.0) g/dL Hct 40.6 (36-46) % MCV 95.1 (80-100) fL MCH 32.0 (26-34) PG MCHC 33.6 (30-36) % RDW 14.0 (11.6-14.8) % Plt Count 267 (150-400) X10^3/uL Neut % (Auto) 63.7 (50-75) % Lymph % (Auto) 24.6 L (25-40) % [place] % (Auto) 8.4 (3-14) % Eos % (Auto) 2.7 (2-4) % Baso % (Auto) 0.6 (0-2) % Neut # (Auto) 4600 (2361-9165) /uL Lymph # (Auto) 1800 (0471-2561) /uL [place] # (Auto) 600 (0-900) /uL Eos # (Auto) 200 (0-450) /uL Baso # (Auto) 0 (0-100) /uL PT 11.3 (9.4-12.5) SECONDS INR 1.0 (0.9-1.3) APTT 32 (25.1-36.5) SECONDS Sodium 139 (137-145) mmol/L Potassium 4.3 (3.4-5.1) mmol/L Chloride 105 (98-107) mmol/L Carbon Dioxide 25 (22-32) mmol/L BUN 18 H (7-17) mg/dL Creatinine 0.89 (0.52-1.04) mg/dL Estimated GFR > 60 (>60) mL/min BUN/Creatinine Ratio 20.2 (6-22) Glucose 113 H (80-110) mg/dL Calcium 9.2 (8.4-10.2) mg/dL Magnesium 2.0 (1.6-2.3) mg/dL Total Bilirubin 0.9 (0.2-1.3) mg/dL AST 30 (14-36) IU/L ALT 25 (<35) IU/L Alkaline Phosphatase 60 (38-126) U/L Total Creatine Kinase 119 (30-135) U/L Troponin I < 0.012 < 0.012 (0.01-0.034) ng/mL NT-Pro-B Natriuret Pep 222 (<450) pg/mL Total Protein 7.3 (6.3-8.2) g/dL Albumin 4.5 (3.5-5.0) g/dL Globulin 2.8 (1.7-4.1) g/dL Albumin/Globulin Ratio 1.6 (1.0-2.8) Lipase 70 (23-300) U/L Imaging Data Chest x-ray: Radiologist's Impression: Close Chest X-Ray (Signed) Cheo Clarke - 09/30/24 Launch?Image [address] [address] XRay Report Signed Patient: Karen Lui MR#: [id number] : 1950 Acct:[id number] Age/Sex: 74 / F Date of Service: 09/30/24 Loc: ED Accession Number: [id number] Procedure: XR chest 1V Ordering Provider: Raghu King MD PROCEDURE: XR CHEST 1V INDICATIONS: chest pain TECHNIQUE: One view of the chest was acquired. COMPARISON: [facility], , XR CHEST 1V, 09/28/2024, 9:21. FINDINGS: Surgical changes and devices: None. Lungs and pleura: Lungs are clear. No pleural effusions or pneumothorax. Mediastinum: Mediastinal contours appear normal. Heart size is normal. Bones and chest wall: No suspicious bony lesions. Overlying soft tissues appear unremarkable. IMPRESSION: No acute cardiothoracic process. Dictated by: Cheo Clarke M.D. on 09/30/2024 at 10:33 Approved by: Cheo Clarke M.D. on 09/30/2024 at 10:33 CT scan - head: Radiologist's Impression: [address] [address] [address] Scan Report Signed Patient: Karen Lui MR#: [id number] : 1950 Acct:[id number] Age/Sex: 74 / F Date of Service: 09/30/24 Loc: ED Accession Number: [id number] Procedure: CT head/brain wo con Ordering Provider: Raghu King MD PROCEDURE: CT HEAD/BRAIN WO CON INDICATIONS: face tingling TECHNIQUE: Noncontrast 4.5 mm thick angled axial sections acquired from the foramen magnum to the vertex, with coronal and sagittal reformats. For radiation dose reduction, the following was used: automated exposure control, adjustment of mA and/or kV according to patient size. COMPARISON: None. FINDINGS: Image quality: Diagnostic. CSF spaces: Basal cisterns are patent. No extra-axial fluid collections. The ventricles are symmetric in size and shape. Brain: No intracranial bleeds or masses. There is cerebral volume loss for age, with resultant ventricular and sulcal prominence. There are periventricular and deep white matter chronic small vessel ischemic changes. There is intracranial internal carotid artery atherosclerosis. Skull and face: Calvarium and visualized facial bones appear intact, without suspicious lesions. Sinuses: Visualized sinuses and mastoids are clear. IMPRESSION: No acute intracranial pathology. Dictated by: Cheo Clarke M.D. on 09/30/2024 at 11:17 Approved by: Cheo Clarke M.D. on 09/30/2024 at 11:18 CTA - brain/neck: Radiologist's Impression: [place] [address] CT Scan Report Signed Patient: Karen Lui MR#: [id number] : 1950 Acct:[id number] Age/Sex: 74 / F Date of Service: 09/30/24 Loc: ED Accession Number: [id number] Procedure: CT angio head and neck Ordering Provider: Raghu King MD PROCEDURE: CT ANGIO HEAD AND NECK INDICATIONS: face tingling TECHNIQUE: After the administration of intravenous contrast, 1 mm thick sections acquired from the aortic arch through the [place]. 3-dimensional hdxvyfb-vilypehvy-ttvyxdjohf (MIP) and/or volume rendering reformats were acquired of the central intracranial vasculature and neck separately. For radiation dose reduction, the following was used: automated exposure control, adjustment of mA and/or kV according to patient size. COMPARISON: None. FINDINGS: Image quality: Diagnostic. BRAIN: Please see the same-day CT head without contrast report for further details. HEAD CT ANGIOGRAPHY: Anterior circulation: Intracranial internal carotid arteries are normal in size and flow. The flow within the paired anterior cerebral arteries is normal and symmetric. The flow within the middle cerebral arteries is normal and symmetric. The anterior communicating artery is seen. No aneurysms are seen. Posterior circulation: origin of the right posterior cerebral artery. Visualized portions of the vertebral arteries demonstrate normal caliber, and join to form a normal appearing basilar artery. Flow within the posterior cerebral arteries is normal and symmetric. No aneurysms are seen. NECK CT ANGIOGRAPHY: Carotid system: Mild calcified and noncalcified plaque at the right common carotid bulb (4/205; 5/151). The great vessels demonstrate a conventional anatomy as they arise from the aortic arch. The origins of the common carotid arteries appear patent. The common carotid arteries demonstrate normal caliber and courses. The bifurcation regions are both widely patent. The internal carotid arteries demonstrate normal calibers and courses. Posterior circulation: The origins of the vertebral arteries both appear widely patent. The more superior extracranial portions of both vertebral arteries also demonstrate normal courses and calibers. They join to form a normal appearing basilar artery. Soft tissues: Visualized neck soft tissues demonstrate no suspicious abnormalities. Bones: No suspicious bony lesions. Visualized cervical spine appears normally aligned. IMPRESSION: No large vessel occlusion, dissection, or aneurysm in the visualized head and neck arterial vasculature. Any quantitative measurements of stenosis were performed using NASCET criteria. Dictated by: Cheo Clarke M.D. on 09/30/2024 at 11:18 Approved by: Cheo Clarke M.D. on 09/30/2024 at 11:22 ECG Data Attestation: I personally reviewed and interpreted this ECG as follows: Interpretation: Sinus bradycardia with rate of 48, no obvious ST segment elevation or depression changes. Lead 3 flat T-waves, otherwise upright in leads 2 and F. SC 130, QRS 94, QTC 369. MDM Narrative Medical decision making narrative: Recent echocardiogram and ZIO patch ambulatory monitoring for palpitations workup, variable BP readings, today with facial tingling and elevated BP 207, consider TIA/stroke workup. EKG and troponin negative. CT Head, CTA Head/Neck vessels ordered. CT Head noncontrast, no acute changes. See radiology report. CTA Head/Neck vessels, no narrowing or thromboses. See radiology report. No MRI available now, declined admit, stated she would do further workup as an outpatient for now. HR 55-60s on monitor, elevated BP, avoid BB/CCB. Trial of Lisinopril 10mg PO daily. Follow up with PCP this week to assess symptoms and BP control on new MI-inhibitor. Further neuro workup as an outpatient for now. Follow up with cardiology as planned. Home with daughter. Return precautions discussed. Discharge Plan Departure Patient Disposition: Home Clinical Impression: Hypertension, Facial tingling, Chest pain Activity Restrictions/Additional Instructions: History of palpitations with recent outpatient cardiac monitoring, recent echocardiogram testing. Elevated blood pressures at home, not yet on any blood pressure regimen prior to arrival. Intermittent chest discomfort, recent evaluation with EKG and negative blood testing. Dizziness and lower face numbness/tingling sensation. Elevated blood pressure at home. Symptoms resolved and lower blood pressure here in the emergency department. Your home blood pressure cuff was retrieved and calibrated with our blood pressure cough, there seems to be a 10 mm Hg difference in readings but it does correlate with readings with that adjustment both arms. CT head noncontrast study unremarkable today. CT angiogram head and neck vessels did not show any narrowing or thrombosis changes. EKG and serial blood tests again unremarkable. Elevated blood pressure but not over 200 as reported. 190-1 70s range mostly near 170s while in the emergency department. Heart rate variable but sometimes in the 50s, sinus rhythm. You reported on your recent outpatient ZIO patch conveyor monitor that sometimes her heart rate went down to 30s, but sometimes was recorded quite high. For now we will avoid blood pressure medications such as beta blockers, calcium channel blockers, clonidine, that could have some heart rate lowering effect. Start blood pressure medication with lisinopril 10 mg for now. This can be titrated in follow up as needed. Consider recheck of your kidney function blood test and your potassium level in the next few days to one- week on the new lisinopril medication. Stopped the medication for any possible allergic reaction or intolerance. Follow up with your forms analysis manager as planned next month. Recheck earlier with your regular doctor this next week or soon to evaluate your progress on new lisinopril medication, and screen for medication side effects and kidney function/electrolyte effects. Return earlier to this/nearest emergency department for any change worsening symptoms or any concerns prior. Prescriptions: New lisinopril 10 mg tablet 10 mg PO DAILY Qty: 30 0RF No Action cholecalciferol (vitamin D3) 1,000 unit capsule 1,000 unit PO DAILY multivitamin Tablet 1 tab PO DAILY vitamin B complex Tablet 1 tab PO DAILY hydroxyzine HCl 25 mg tablet 25 mg PO DAILY PRN (Reason: anxiety) meloxicam 15 mg tablet 15 mg PO DAILY Qty: 30 2RF Referrals: Tiffany Mims MD [Primary Care Provider] - Stand Alone Forms: Patient Portal/API/Survey
--- NOTE | 2024-09-30 11:40 | DI.CT.S_ITS ---
PROCEDURE: CT ANGIO HEAD AND NECK INDICATIONS: face tingling TECHNIQUE: After the administration of intravenous contrast, 1 mm thick sections acquired from the aortic arch through the [place]. 3-dimensional kujmfgy-kcdhtvgcd-goellgjqvg (MIP) and/or volume rendering reformats were acquired of the central intracranial vasculature and neck separately. For radiation dose reduction, the following was used: automated exposure control, adjustment of mA and/or kV according to patient size. COMPARISON: None. FINDINGS: Image quality: Diagnostic. BRAIN: Please see the same-day CT head without contrast report for further details. HEAD CT ANGIOGRAPHY: Anterior circulation: Intracranial internal carotid arteries are normal in size and flow. The flow within the paired anterior cerebral arteries is normal and symmetric. The flow within the middle cerebral arteries is normal and symmetric. The anterior communicating artery is seen. No aneurysms are seen. Posterior circulation: origin of the right posterior cerebral artery. Visualized portions of the vertebral arteries demonstrate normal caliber, and join to form a normal appearing basilar artery. Flow within the posterior cerebral arteries is normal and symmetric. No aneurysms are seen. NECK CT ANGIOGRAPHY: Carotid system: Mild calcified and noncalcified plaque at the right common carotid bulb (4/205; 5/151). The great vessels demonstrate a conventional anatomy as they arise from the aortic arch. The origins of the common carotid arteries appear patent. The common carotid arteries demonstrate normal caliber and courses. The bifurcation regions are both widely patent. The internal carotid arteries demonstrate normal calibers and courses. Posterior circulation: The origins of the vertebral arteries both appear widely patent. The more superior extracranial portions of both vertebral arteries also demonstrate normal courses and calibers. They join to form a normal appearing basilar artery. Soft tissues: Visualized neck soft tissues demonstrate no suspicious abnormalities. Bones: No suspicious bony lesions. Visualized cervical spine appears normally aligned. IMPRESSION: No large vessel occlusion, dissection, or aneurysm in the visualized head and neck arterial vasculature. Any quantitative measurements of stenosis were performed using NASCET criteria. Dictated by: Cheo Clarke M.D. on 09/30/2024 at 11:18 Approved by: Cheo Clarke M.D. on 09/30/2024 at 11:22
[2024-09-30 13:40] LABS: Troponin I < 0.012 ng/mL (0.01-0.034)
== END 2024-09-30 14:27 | disposition home or self-care (01) ==
PROVIDERS: Emergency Provider Emergency Medicine; PCP Family Medicine
DX: I10 Essential (primary) hypertension (principal); R20.2 Paresthesia of skin; R07.9 Chest pain, unspecified; R00.1 Bradycardia, unspecified
CPT/HCPCS: 36415; 70450; 70496; 70498; 71045; 80053; 82550; 83690; 83735; 83880; 84484; 85025; 85610; 85730; 93005; 93010; 99283; 99284; Q9967

== ENCOUNTER 2024-10-11 15:39 | Outpatient (CLI) | payer MEDICARE, OTHER, SELFPAY ==
[2024-10-11] VITALS (8 sets, daily range): BP systolic 124–161; BP diastolic 62–77; PULSE 42–51; RESP 16–17; O2SAT 97–100
[2024-10-11] MEDS: MIDAZOLAM 2 MG/2 ML VIAL IV (15:03)
[2024-10-11] MEDS: iopamidoL 15 ML VIAL 3 ML INJ (15:05)
[2024-10-11] MEDS: BUPIVACAINE 0.5% MDV 5 ML INJ (15:05)
--- NOTE | 2024-10-11 15:11 | P.PCN_ITS ---
Date/Time/Diagnoses Date of procedure: 10/11/24 Time of procedure: 15:11 Pre-procedure diagnosis: 1. FACET ARTHROPATHY Post-procedure diagnosis: same Procedure Notes Procedure: 1. Left L4, L5 and S1 MB BLOCKS LA Indications: Karen is referred by Dr. Mims for treatment of Left Axial LBP. Physician: Abe Fernandez Total Fluoroscopy time (seconds): 4 Total sedation minutes: 10 Complications: none Procedure in detail & Post-procedure care: DESCRIPTION OF PROCEDURE Fluoroscopically guided, contrast-controlled left L4, L5 and S1 medial branch blocks with 0.5cc of 0.5% Marcaine. Following review of allergy and review of potential side effects and complications, including, but not necessarily limited to, infection, allergic reaction, local tissue breakdown, nerve injury, paralysis, stroke and possible , the patient indicated that the patient understood and agreed to proceed. An informed consent document was signed by the patient, witnessed by a nurse, and placed in the patient's chart. After review of previous anaesthesic history and IV conscious sedation the patient was deemed safe to proceed with today?s procedure with IV conscious sedation as ASA class II designation. Safety time-out was performed to confirm patient ID, procedure to be performed and site of procedure. IV sedation was accomplished with a combination of 2mg of Versed was administered by the RN after DO order, titrated to patient comfort during the course of the procedure while the patient remained responsive to all verbal commands. In the prone position, following sterile prep and drape of the lumbar region, the left L4, L5 and S1 anatomical location of the medial branch of the dorsal ramus was identified fluoroscopically. Subsequently an anesthetic skin wheal using 1% lidocaine solution was initiated at each of the anatomical spots. Subsequently then a 22-gauge 3.5-inch spinal needle was atraumatically introduced and advanced under fluoroscopic guidance at each of the corresponding sites at the left L4, L5 and S1 MB. After negative aspiration, 0.2cc of Isovue 200 was injected, confirming placement without vascular or intrathecal uptake. Subsequently then 0.5cc of 0.5% Marcaine solution was injected at each of the corresponding sites at the left L4, L5 and S1 medial branch locations. The patient tolerated the procedure well without signs or symptoms of complications. The patient tolerated the procedure well without signs or symptoms of complications prior to transfer to the recovery area continued monitoring without incident. Post-procedure, the patient was monitored initiating provocative activities to measure the amount of relief from block of the facetogenic pain. The patient reported a VAS of 7 prior to the procedure and a post-procedure VAS of 1. It has been a pleasure to assist in the diagnostic and therapeutic care of your patient. POST OP INSTRUCTIONS The patient was provided with a Pain Log to complete over the next several hours and subsequent days prior to the patient's follow up with the ordering physician. If the patient has administrative support coordinator relief to the solution applied, then they may be a candidate for medial branch rhizotomy. The patient is aware, was provided, once again, with a Pain Log and will follow up with the referring physician for review and clinical correlation.
== END 2024-10-11 16:05 | disposition home or self-care (01) ==
PROVIDERS: PCP Family Medicine; Referring Provider Physical Medicine & Rehabilitation; Visit Provider Physical Medicine & Rehabilitation
DX: M47.816 Spondylosis without myelopathy or radiculopathy, lumbar region (principal); M47.817 Spondylosis without myelopathy or radiculopathy, lumbosacral region
CPT/HCPCS: 64493; 64494; 99152; J2250

== ENCOUNTER 2025-01-10 08:19 | Emergency (ER) | payer MEDICARE, OTHER, SELFPAY ==
[2025-01-10] VITALS (12 sets, daily range): BP systolic 126–168; BP diastolic 66–115; PULSE 54–156; RESP 12–33; O2SAT 92–98
--- NOTE | 2025-01-10 08:27 | DI.RAD.S_ITS ---
PROCEDURE: XR CHEST 1V INDICATIONS: Chest Pain TECHNIQUE: One view of the chest was acquired. COMPARISON: [facility], CR, XR CHEST 1V, 09/30/2024, 10:27. FINDINGS: Surgical changes and devices: None. Lungs and pleura: Lungs are clear. No pleural effusions or pneumothorax. Mediastinum: Mediastinal contours appear normal. Heart size is normal. Bones and chest wall: No suspicious bony lesions. Overlying soft tissues appear unremarkable. IMPRESSION: No acute cardiopulmonary abnormality is seen. Dictated by: Isac Peterson M.D. on 01/10/2025 at 9:00 Approved by: Isac Peterson M.D. on 01/10/2025 at 9:04
--- NOTE | 2025-01-10 08:36 | EKG_ITS ---
[place] [id number] [address] [place] [id number] Test Date: 2025-01-10 Pat Name: Karen Lui Department: [facility] Room: Gender: Female Biomedical Repair Technician: : 1950 Requested By: Order Number: [id number] Reading MD: Brady Chappell MD Measurements Intervals [place] Rate: 137 P: AL: QRS: 8 QRSD: 90 T: 47 QT: 316 QTc: 477 Interpretive Statements Probable Atrial Fibrillation with RVR ST & T wave abnormality, consider inferior ischemia Electronically Signed On 01-10-2025 9:21:44 PDT by Brady Chappell MD
[2025-01-10 09:08] LABS: Add Manual Diff / Slide Review NO; Hematocrit 43.1 % (36-46); Hemoglobin 14.3 g/dL (12.0-16.0); Lymphocytes Absolute Auto 2100 /uL (1100-4500); Mean Corpuscular HGB Conc 33.2 % (30-36); Mean Corpuscular Hemoglobin 31.4 PG (26-34); Mean Corpuscular Volume 94.6 fL (80-100); Platelet Count 264 X10^3/uL (150-400)
[2025-01-10 09:15] LABS: INR 0.9 (0.9-1.3); Prothrombin Time 10.7 SECONDS (9.4-12.5)
[2025-01-10 09:18] LABS: PTT Partial Thromboplastin Tim 29 SECONDS (25.1-36.5)
[2025-01-10 09:19] LABS: Alanine Aminotransferase 26 IU/L (<35); Albumin 4.8 g/dL (3.5-5.0); Albumin Globulin Ratio 1.6 (1.0-2.8); Alkaline Phosphatase 67 U/L (38-126); Blood Urea Nitrogen 15 mg/dL (7-17); Calcium 9.5 mg/dL (8.4-10.2); Carbon Dioxide 26 mmol/L (22-32); Chloride 106 mmol/L (98-107); Creatine Kinase 109 U/L (30-135); Estimated Glomerular Filt Rate > 60 mL/min (>60); Globulin 3.0 g/dL (1.7-4.1); Glucose 128 mg/dL (70-99); HEMOLYSIS < 15 (0-50); Lipase 76 U/L (23-300); Magnesium 1.9 mg/dL (1.6-2.3); Potassium 4.3 mmol/L (3.4-5.1); Sodium 141 mmol/L (137-145); Total Protein 7.8 g/dL (6.3-8.2)
[2025-01-10 09:30] LABS: NT-proBNP (BNP-Adult 18+) 342 pg/mL (<450); Troponin I < 0.012 ng/mL (0.01-0.034)
--- NOTE | 2025-01-10 09:39 | ED.ARRPALP ---
HPI - Arrhythmia/Palpitations General Chief Complaint: Arrhythmia/Palpitations Stated Complaint: AFIB, High blood pressure this morning Time Seen by Provider: 01/10/25 09:24 History of Present Illness HPI narrative: Patient here for palpitations. Started about an hour ago. Patient seen here in September for new onset atrial fibrillation. Patient has not started Eliquis or any blood thinners. Patient denies any chest pain or syncope. No dizziness. No shortness of breath. Patient sees Dr. Zaldivar. She did have a reassuring echocardiogram in September of this year. Patient was prescribed metoprolol as needed, she did take her metoprolol this morning. Related Data Home Medications ?Medication ?Instructions ?Recorded ?Confirmed cholecalciferol (vitamin D3) 25 1,000 unit PO DAILY 02/06/18 01/07/25 mcg (1,000 unit) capsule hydroxyzine HCl 25 mg tablet 25 mg PO DAILY PRN anxiety 05/21/24 01/07/25 multivitamin 1 tab PO DAILY 05/21/24 01/07/25 vitamin B complex 1 tab PO DAILY 05/21/24 01/07/25 atorvastatin 10 mg tablet 10 mg PO DAILY 01/07/25 01/07/25 losartan 50 mg tablet 50 mg PO DAILY 01/07/25 01/07/25 Previous Rx's ?Medication ?Instructions ?Recorded lisinopril 10 mg tablet 10 mg PO DAILY #30 tabs 09/30/24 meloxicam 15 mg tablet 15 mg PO DAILY #30 tabs 01/07/25 Allergies Allergy/AdvReac Type Severity Reaction Status Date / Time codeine (CODEINE) AdvReac Severe Extreme Verified 01/07/25 14:50 nausea oxycodone (OXYCODONE) AdvReac Severe Extreme Verified 01/07/25 14:50 nausea Review of Systems Review of Systems Narrative: GENERAL: Negative chills, fatigue, malaise, fever, sweats. HEENT: Negative sinus pain, ear pain, sore throat RESPIRATORY: Negative dyspnea, cough CARDIOVASCULAR: Negative chest pain, positive palpitations GASTROINTESTINAL: Negative vomiting, nausea, abdominal pain : Negative dysuria, frequency, hematuria MUSCULOSKELETAL: Negative muscle or bony pain SKIN: Negative rash, skin lesions NEUROLOGIC: Negative weakness, numbness ROS Unobtainable: All systems reviewed & are unremarkable except as noted in HPI and below Patient History Medical History Chicken pox (~1950) Facet arthropathy, lumbar Herpes (~1979) Lumbar radiculopathy Sacral dysfunction Surgical History Anesthesia Fractures (~2017) Family History Father High cholesterol Stroke Mother Stroke Social History household members: family and other alcohol intake: current alcohol intake frequency: 0-2 drinks per day Exam Narrative Exam Narrative: GENERAL: in no distress, not toxic not dyspneic HEAD: Normocephalic. EYES: Pupils equal round ENT: Mucous membranes moist. NECK: Trachea midline. CARDIOVASCULAR: Tachycardia with irregular irregular rate and rhythm RESPIRATORY: Clear to auscultation. Breath sounds equal bilaterally. No wheezes, rales, or rhonchi. GASTROINTESTINAL: Abdomen soft, non-tender EXTREMITIES: No gross deformities. BACK: No flank tenderness. NEURO: AOx4. Clear speech SKIN: Warm and dry PSYCH: Not anxious, is cooperative Initial Vital Signs Initial Vital Signs: Vital Signs Pulse Rate 132 H 01/10/25 08:45 Pulse Oximetry 92 01/10/25 08:45 Course Orders Ordered: Discontinued Medications Apixaban (Apixaban 5 Mg Tablet) 5 mg PO NOW ONE Stop: 01/10/25 09:46 Last Admin: 01/10/25 09:57 Dose: 5 mg Documented By: MARIA EUGENIA Aspirin (Aspirin 81 Mg Chew Tab) 324 mg PO NOW ONE Stop: 01/10/25 08:28 Last Admin: 01/10/25 09:56 Dose: Not Given Documented By: MARIA EUGENIA Diltiazem HCl (Diltiazem 25 Mg/5 Ml Sdv) 10 mg IV NOW ONE Stop: 01/10/25 09:39 Last Admin: 01/10/25 10:22 Dose: Not Given Documented By: MARIA EUGENIA Diltiazem HCl 125 mg/ Sodium (Chloride) 125 mls @ 5 mls/hr IV TITRATE NORTH; Protocol Last Admin: 01/10/25 10:22 Dose: Not Given Documented By: MARIA EUGENIA Vital Signs Vital signs: Vital Signs - 8 hr 01/10/25 08:45 01/10/25 08:46 01/10/25 08:46 Pulse Rate 132 H 135 H Respiratory Rate 18 Blood Pressure 151/94 H Pulse Oximetry 92 97 01/10/25 09:00 01/10/25 09:00 01/10/25 09:25 Pulse Rate 134 H 156 H Respiratory Rate 15 17 Blood Pressure 168/101 H Pulse Oximetry 96 97 01/10/25 09:25 01/10/25 09:30 01/10/25 09:30 Pulse Rate 145 H Respiratory Rate 17 Blood Pressure 145/115 H 136/111 H Pulse Oximetry 97 01/10/25 09:56 01/10/25 09:56 01/10/25 10:00 Pulse Rate 134 H 146 H Respiratory Rate 12 25 H Blood Pressure 126/88 Pulse Oximetry 97 96 01/10/25 10:21 01/10/25 10:21 01/10/25 10:30 Pulse Rate 63 Respiratory Rate 18 Blood Pressure 157/84 H 127/81 Pulse Oximetry 95 01/10/25 10:30 01/10/25 11:00 01/10/25 11:00 Pulse Rate 54 L 66 Respiratory Rate 24 33 H Blood Pressure 150/76 H Pulse Oximetry 95 95 01/10/25 11:30 01/10/25 11:32 01/10/25 11:32 Pulse Rate 63 56 L Respiratory Rate 17 21 Blood Pressure 141/66 H Pulse Oximetry 96 98 MDM - Arrhythmia/Palpitations Lab Data 01/10/25 08:52 01/10/25 08:52 Labs: Lab Results 01/10/25 Range/Units 08:52 WBC 5.3 (4.5-11.0) X10^3/uL RBC 4.56 (4.0-5.2) X10^6/uL Hgb 14.3 (12.0-16.0) g/dL Hct 43.1 (36-46) % MCV 94.6 (80-100) fL MCH 31.4 (26-34) PG MCHC 33.2 (30-36) % RDW 14.4 (11.6-14.8) % Plt Count 264 (150-400) X10^3/uL Neut % (Auto) 47.6 L (50-75) % Lymph % (Auto) 39.2 (25-40) % Rankin % (Auto) 7.4 (3-14) % Eos % (Auto) 5.1 H (2-4) % Baso % (Auto) 0.7 (0-2) % Neut # (Auto) 2500 (1159-6075) /uL Lymph # (Auto) 2100 (2872-2520) /uL Rankin # (Auto) 400 (0-900) /uL Eos # (Auto) 300 (0-450) /uL Baso # (Auto) 0 (0-100) /uL PT 10.7 (9.4-12.5) SECONDS INR 0.9 (0.9-1.3) APTT 29 (25.1-36.5) SECONDS Sodium 141 (137-145) mmol/L Potassium 4.3 (3.4-5.1) mmol/L Chloride 106 (98-107) mmol/L Carbon Dioxide 26 (22-32) mmol/L BUN 15 (7-17) mg/dL Creatinine 0.89 (0.52-1.04) mg/dL Estimated GFR > 60 (>60) mL/min BUN/Creatinine Ratio 16.9 (6-22) Glucose 128 H (70-99) mg/dL Calcium 9.5 (8.4-10.2) mg/dL Magnesium 1.9 (1.6-2.3) mg/dL Total Bilirubin 1.0 (0.2-1.3) mg/dL AST 31 (14-36) IU/L ALT 26 (<35) IU/L Alkaline Phosphatase 67 (38-126) U/L Total Creatine Kinase 109 (30-135) U/L Troponin I < 0.012 (0.01-0.034) ng/mL NT-Pro-B Natriuret Pep 342 (<450) pg/mL Total Protein 7.8 (6.3-8.2) g/dL Albumin 4.8 (3.5-5.0) g/dL Globulin 3.0 (1.7-4.1) g/dL Albumin/Globulin Ratio 1.6 (1.0-2.8) Lipase 76 (23-300) U/L Imaging Data Chest x-ray: Radiologist's Impresson: [address] [address] XRay Report Signed Patient: Karen Lui MR#: [id number] : 1950 Acct:[id number] Age/Sex: 74 / F Date of Service: 01/10/25 Loc: ED Accession Number: [id number] Procedure: XR chest 1V Ordering Provider: Gonsalo Beckman MD PROCEDURE: XR CHEST 1V INDICATIONS: Chest Pain TECHNIQUE: One view of the chest was acquired. COMPARISON: [facility], , XR CHEST 1V, 09/30/2024, 10:27. FINDINGS: Surgical changes and devices: None. Lungs and pleura: Lungs are clear. No pleural effusions or pneumothorax. Mediastinum: Mediastinal contours appear normal. Heart size is normal. Bones and chest wall: No suspicious bony lesions. Overlying soft tissues appear unremarkable. IMPRESSION: No acute cardiopulmonary abnormality is seen. Dictated by: Isac Peterson M.D. on 01/10/2025 at 9:00 Approved by: Isac Peterson M.D. on 01/10/2025 at 9:04 [facility] Narrative Medical decision making narrative: Patient here for palpitations. Started about an hour ago. Patient seen here in September for new onset atrial fibrillation. Patient has not started Eliquis or any blood thinners. Patient denies any chest pain or syncope. No dizziness. No shortness of breath. Patient sees Dr. Zaldivar. She did have a reassuring echocardiogram in September of this year. Patient was prescribed metoprolol as needed, she did take her metoprolol this morning. After history and exam, CBC CMP EKG troponin BNP PT INR chest x-ray cardiology consult [facility] Medical records reviewed: September 2024 ER visits twice here. Echocardiogram reviewed. Differential considered: Includes but not limited to atrial fibrillation atrial flutter Lab Test results independently reviewed as above. Pertinent findings: WBC 5.3 hemoglobin 14.3 INR 0.9 sodium 141 potassium 4.3 GFR greater than 60 glucose 128 troponin less than 0.012 BNP 342 Independently reviewed EKG atrial fibrillation rate 137 Imaging studies independently reviewed: Chest x-ray no acute finding Consultations: 9:38 a.m.. Spoke with Cardiology, Dr. Peaz, do not cardiovert. Start rate control, admit. Patient has not been on any blood thinners. 10:[address] Lantigua, hospitalist, patient has converted and rate much more controlled. Recommends discharge home on metoprolol XL low dose 12.5 mg daily or 25 mg daily. Re-evaluations: 9:45 a.m.. Updated patient my discussion with cardiology services for admission and rate controlled. She does agree with Eliquis. She does understand need for admission. will be on Cardizem drip. 10:48 a.m.. Patient has not received any Cardizem. Patient has spontaneously converted to sinus rhythm, EKG repeat is sinus rhythm rate 76. However on monitor patient has had off and on sinus rhythm to atrial fibrillation but rate is now controlled at 61 11:01 a.m.. Patient feeling much better. She does desire discharge home. No that she has converted to sinus rhythm 11:43 a.m.. Patient asymptomatic. Has been sinus rhythm here. She converted spontaneously. Heart rate does show bradycardia but patient is asymptomatic. She does not want to have any changes in her metoprolol. She will take her Eliquis. She does have it at home. Discussion: Appropriate for discharge home. Patient does not want any changes in her metoprolol, she would like to follow her machine silk screen printer's recommendation for as needed as needed with AFib. She is sensitive to the metoprolol with heart rate however she is asymptomatic. Has been up to the bathroom many times even with bradycardia down in the 40s. Return precautions reviewed. Patient desires discharge home. Diagnosis: Atrial fibrillation Discharge Plan Departure Patient Disposition: Home Clinical Impression: Atrial fibrillation Qualifiers: Atrial fibrillation type: paroxysmal Qualified Code(s): I48.0 - Paroxysmal atrial fibrillation Instructions: DI for Atrial Fibrillation Activity Restrictions/Additional Instructions: Please continue your home medications. Please resume your Eliquis tonight. Please call your cardiology services/provider today for follow up appointment next week. Your cardiology office was contacted today. The machine silk screen printer on-call has reviewed your results. Please continue your metoprolol as instructed by your machine silk screen printer. Return if worse if any questions or concerns Prescriptions: No Action cholecalciferol (vitamin D3) 1,000 unit capsule 1,000 unit PO DAILY lisinopril 10 mg tablet 10 mg PO DAILY Qty: 30 0RF multivitamin Tablet 1 tab PO DAILY vitamin B complex Tablet 1 tab PO DAILY hydroxyzine HCl 25 mg tablet 25 mg PO DAILY PRN (Reason: anxiety) losartan 50 mg tablet 50 mg PO DAILY atorvastatin 10 mg tablet 10 mg PO DAILY meloxicam 15 mg tablet 15 mg PO DAILY Qty: 30 2RF Referrals: Tiffany Mims MD [Primary Care Provider, Family Practice] Stand Alone Forms: Patient Portal/API
[2025-01-10] MEDS: APIXABAN 5 MG TABLET PO (09:57)
--- NOTE | 2025-01-10 10:22 | EKG_ITS ---
[address] [address] Test Date: 2025-01-10 Pat Name: Karen Lui Department: Room: Gender: Female Senior Manager: GIO : 1950 Requested By: Order Number: [id number] Reading MD: Brady Chappell MD Measurements Intervals [place] Rate: 76 P: 72 VA: 172 QRS: -3 QRSD: 92 T: 25 QT: 396 QTc: 445 Interpretive Statements Sinus rhythm with marked sinus arrhythmia Cannot rule out Anterior infarct , age undetermined Electronically Signed On 01-12-2025 7:53:33 PDT by Brady Chappell MD
--- NOTE | 2025-01-10 10:22 | PC.NURSE ---
Pt converted during 2nd IV stick. Dr Beckman aware, repeat EKG ordered.
== END 2025-01-10 11:58 | disposition home or self-care (01) ==
PROVIDERS: Emergency Provider Emergency Medicine; PCP Family Medicine
DX: I48.0 Paroxysmal atrial fibrillation (principal); R07.9 Chest pain, unspecified
CPT/HCPCS: 36415; 71045; 80053; 82550; 83690; 83735; 83880; 84484; 85025; 85610; 85730; 93005; 93010; 99284

== ENCOUNTER → 2025-01-30 12:13 | Outpatient (CLI) | payer MEDICARE, OTHER, SELFPAY ==
--- NOTE | 2025-01-30 12:15 | DI.MG.S_ITS ---
MM diagnostic mammo BI: 01/30/2025. BI-RADS: 4A CLINICAL: 74-year old female for bilateral diagnostic mammogram. The patient presents for a follow-up. Tyrer-Cuzick lifetime risk of 8.3%. No personal or first-degree family history of breast cancer. The patient had a prior right breast biopsy. PRIOR EXAMS 08/09/2023, 10/15/2022, 12/10/2021, 11/24/2021, 10/01/2020. MAMMOGRAPHY TECHNIQUE: 2D and 3D (tomosynthesis) digital mammographic views obtained, with additional images as needed for full coverage. Current study was also evaluated with a Computer Aided Detection (CAD) system. DENSITY C. The breasts are heterogeneously dense, which may obscure small masses. MAMMOGRAPHY FINDINGS Right: Upper Inner at 1:00, Middle depth, measuring 0.4cm: There are grouped coarse heterogeneous calcifications that have increased in size and appearance. Left: No suspicious mass, asymmetry, microcalcification, or other abnormality seen. No significant change from comparison. IMPRESSION: Right (Calcification): Upper Inner at 1:00, Middle depth, measuring 0.4cm * Low Suspicion for Malignancy. Left * No evidence of malignancy. RECOMMENDATIONS Right: Upper Inner at 1:00, Middle depth * Stereotactic-guided biopsy for further evaluation. COMMENTS: Findings and recommendations were conveyed to the patient during today's evaluation by Dr. Castellanos. OVERALL ASSESSMENT CATEGORY BI-RADS-4: Suspicious. ELECTRONICALLY SIGNED: Kenia Mata M.D. on 01/30/2025 at 02:26:20 PM PT Interpreting Station ID: [id number]
== END ==
LOC: MAMMO 12:14
PROVIDERS: PCP Family Medicine; Referring Provider Family Medicine; Visit Provider Family Medicine
DX: R92.8 Other abnormal and inconclusive findings on diagnostic imaging of breast (principal); R92.1 Mammographic calcification found on diagnostic imaging of breast; R92.333 Mammographic heterogeneous density, bilateral breasts
CPT/HCPCS: 77066; G0279

== ENCOUNTER 2025-02-07 14:21 | Outpatient (CLI) | payer MEDICARE, OTHER, SELFPAY ==
[2025-02-07] VITALS (7 sets, daily range): BP systolic 121–153; BP diastolic 58–69; PULSE 48–58; RESP 16–18; TEMP 36.6; O2SAT 96–100
[2025-02-07] MEDS: MIDAZOLAM 2 MG/2 ML VIAL IV (15:50)
[2025-02-07] MEDS: LIDOCAINE 2% INJ MDV 20ML 5 ML INJ (15:55)
--- NOTE | 2025-02-07 16:06 | P.PCN_ITS ---
Date/Time/Diagnoses Date of procedure: 02/07/25 Time of procedure: 16:06 Pre-procedure diagnosis: FACET ARTHROPATHY Post-procedure diagnosis: same Procedure Notes Procedure: 1. Left L4, L5 and S1 MB BLOCKS SA Indications: Karen is referred by Dr. Mims for treatment of Left Axial LBP. Physician: Abe Fernandez Total Fluoroscopy time (seconds): 7 Total sedation minutes: 11 Complications: none Procedure in detail & Post-procedure care: DESCRIPTION OF PROCEDURE Fluoroscopically guided, contrast-controlled left L4, L5 and S1 medial branch blocks with 0.5cc of 2% Lidocaine. Following review of allergy and review of potential side effects and complications, including, but not necessarily limited to, infection, allergic reaction, local tissue breakdown, nerve injury, paralysis, stroke and possible , the patient indicated that the patient understood and agreed to proceed. An informed consent document was signed by the patient, witnessed by a nurse, and placed in the patient's chart. After review of previous anaesthesic history and IV conscious sedation the patient was deemed safe to proceed with today?s procedure with IV conscious sedation as ASA class II designation. Safety time-out was performed to confirm patient ID, procedure to be performed and site of procedure. IV sedation was accomplished with a combination of 2mg of Versed was administered by the RN after DO order, titrated to patient comfort during the course of the procedure while the patient remained responsive to all verbal commands. In the prone position, following sterile prep and drape of the lumbar region, the left L4, L5 and S1 anatomical location of the medial branch of the dorsal ramus was identified fluoroscopically. Subsequently an anesthetic skin wheal using 1% lidocaine solution was initiated at each of the anatomical spots. Subsequently then a 22-gauge 3.5-inch spinal needle was atraumatically introduced and advanced under fluoroscopic guidance at each of the corresponding sites at the left L4, L5 and S1 MB. After negative aspiration, 0.2cc of Isovue 200 was injected, confirming placement without vascular or intrathecal uptake. Subsequently then 0.5cc of 2% Lidocaine solution was injected at each of the corresponding sites at the left L4, L5 and S1 medial branch locations. The patient tolerated the procedure well without signs or symptoms of complications. The patient tolerated the procedure well without signs or symptoms of complications prior to transfer to the recovery area continued monitoring without incident. Post-procedure, the patient was monitored initiating provocative activities to measure the amount of relief from block of the facetogenic pain. The patient reported a VAS of 7 prior to the procedure and a post-procedure VAS of 1. It has been a pleasure to assist in the diagnostic and therapeutic care of your patient. POST OP INSTRUCTIONS The patient was provided with a Pain Log to complete over the next several hours and subsequent days prior to the patient's follow up with the ordering physician. If the patient has patient account analyst relief to the solution applied, then they may be a candidate for medial branch rhizotomy. The patient is aware, was provided, once again, with a Pain Log and will follow up with the referring physician for review and clinical correlation.
== END 2025-02-07 16:27 | disposition home or self-care (01) ==
PROVIDERS: PCP Family Medicine; Referring Provider Family Medicine; Visit Provider Physical Medicine & Rehabilitation
DX: M47.816 Spondylosis without myelopathy or radiculopathy, lumbar region (principal); M47.817 Spondylosis without myelopathy or radiculopathy, lumbosacral region
CPT/HCPCS: 64493; 64494; 99152; J2250

== ENCOUNTER 2025-04-02 07:49 | Outpatient (CLI) | payer MEDICARE, OTHER, SELFPAY ==
[2025-04-02] VITALS (9 sets, daily range): BP systolic 125–149; BP diastolic 55–73; PULSE 47–54; RESP 14–24; TEMP 36.3; O2SAT 97–99
[2025-04-02] MEDS: ONDANSETRON 4 MG/2 ML INJ IV (08:20)
[2025-04-02] MEDS: MIDAZOLAM 2 MG/2 ML VIAL IV ×2 (08:34→08:40)
[2025-04-02] MEDS: LIDOCAINE 1% 20 ML 5 ML INJ (08:37)
--- NOTE | 2025-04-02 09:01 | P.PCN_ITS ---
Date/Time/Diagnoses Date of procedure: 04/02/25 Time of procedure: 09:02 Pre-procedure diagnosis: 1. RECALCITRANT FACET ARTHROPATHY Post-procedure diagnosis: same Procedure Notes Procedure: 1. LEFT L4 AND L5 MEDIAL BRANCH RADIOFREQUENCY NEUROTOMY AND LEFT S1 DORSAL RAMUS RADIOFREQUENCY NEUROTOMY, Indications: Karen is referred by Dr. Mims for treatment of facet arthropathy. Physician: Abe Fernandez Total Fluoroscopy time (seconds): 12 Total sedation minutes: 28 Complications: none Procedure in detail & Post-procedure care: DESCRIPTION OF PROCEDURE Left L4 and L5 medial branch radiofrequency neurotomy and left S1 dorsal ramus branch radiofrequency neurotomy under fluoroscopy with conscious sedation. The patient is well known to this clinic having undergone previous facet injections with good but temporary relief. The patient has experienced appropriate, concordant relief with previous facet and median branch blocks but the patient's pain has been recalcitrant to further conservative measures. Therefore, based upon the patient's relief and persistent symptoms, the patient is considered an appropriate candidate for facet rhizotomy. All of the patient's questions regarding the risks versus benefits of the procedure, including, but not limited to, bleeding, infection, temporary as well as lasting nerve injury, paralysis, stroke, and , as well treatment alternatives were answered to satisfaction. After obtaining informed consent, denial of pertinent drug allergies, as well as being made aware of the potential risks of bleeding, infection, spinal cord trauma, paralysis, temporary and permanent nerve damage, seizure, stroke, and possible , the patient was brought to the fluoroscopy suite and positioned prone on the fluoroscopy table. The lumbar region was prepped with Betadine and covered with a fenestrated drape in the usual sterile fashion. Appropriate monitors applied including pulse oximeter, pulse, and blood pressure for regular monitoring throughout the procedure. IV sedation was accomplished with a combination of 4mg of Versed titrated to patient comfort during the course of the procedure while the patient remained responsive to all verbal commands. After local infiltration using 1% lidocaine, under fluoroscopic guidance, a 10- cm RF insulated needle with a 10-mm active tip was positioned parallel to the junction of the left sacral ala and the superior articulating process where the S1 dorsal ramus resides. Needle placement was confirmed with sensory stimulation at 50 Hz, with motor stimulation of .5v on the left which produced local stimulation without radicular component. The stimulation was then increased to 2v with, once again, only local multifidus stimulation without radicular component. This was then followed by two discreet lesions performed at 80 degrees Celsius for 90 seconds each. The needle was then removed and the identical procedure was performed along the length of the left L5 medial branch with motor stimulation at .7v on the left. The identical procedure was once again performed along the length of the left L4 medial branch with motor stimulation of .5v on the left. The patient tolerated the procedure well without signs or symptoms of complications prior to transfer to the recovery area continued monitoring without incident. The patient was then transferred to the recovery area where they were observed for an appropriate period of time after the injection. The patient was then transferred to the recovery area where they were observed for an appropriate period of time after the injection. The patient reported a VAS score of 9 prior to the procedure and a post- procedure VAS of 0. POST OP INSTRUCTIONS The patient was provided a Pain Log to continue to record the patient's response to the target-specific procedure prior to the patient's follow-up visit with the referring physician. Additionally, specific post-injection care instructions and a contact number to our office were provided if concerns arise regarding possible complications associated with the procedure are suspected.
== END 2025-04-02 09:10 | disposition home or self-care (01) ==
PROVIDERS: PCP Family Medicine; Referring Provider Physical Medicine & Rehabilitation; Visit Provider Physical Medicine & Rehabilitation
DX: M47.816 Spondylosis without myelopathy or radiculopathy, lumbar region (principal); M47.817 Spondylosis without myelopathy or radiculopathy, lumbosacral region
CPT/HCPCS: 64635; 64636; 99152; 99153; J2250; J2405